=== PATIENT | male | born 1960 | race Caucasian/White ===

== ENCOUNTER 2017-02-21 13:40 | Inpatient (IN) | payer BC, OTHER ==
[~2017-02-21] VITALS: Ht 182.9 cm; Wt 123.4 kg
[~2017-02-21 13:40] MED LIST: ADVIN25/60 INH; ALBUAER2 INH; AMIL5TAB15 PO; ASPI81TA28 PO; ATOR-26 PO; CARV12.52 PO; CHOL100010 PO; HYDR-5688 PO; IPRA1AER2 INH; LISI-461 PO; NIFE1TAB55 PO; NTRGSL/4 UT; PREG200C PO; ROPI0.5T15 PO; ROPI1TAB PO; SERT-234 PO; TIOTCAP INH
--- NOTE | 2017-02-21 13:52 | EMERGENCY ROOM VISIT NOTE ---
History Report prepared by Jose Luis: Ezekiel Trujillo Under the Supervision of: Dr. Josefa August M.D. First contact with patient: 13:42 Stated Complaint: STROKE SYMPTOMS History of Present Illness The patient is a 56 year old male who presents to the Emergency Room with complaints of acute altered mental status that started at approximately 1230. EMS notes that the patient is displaying stroke-like symptoms. The patient was at work when the symptoms started. He denies nausea or vomiting. EMS gave the patient 1 inch of nitroglycerin en route to the ED. The patient has had multiple TIAs in the past. A complete history is limited secondary to altered mental status. Source of History: patient, EMS History Limited By: AMS Onset: 1230 Position: other (psyche) Quality: other (altered mental status) Timing: other (acute) Associated Symptoms: No nausea, No vomiting Review of Systems ROS is limited secondary to altered mental status. Past Medical & Surgical Medical Problems: (1) History of TIA (transient ischemic attack) (2) Left corneal abrasion Family History Patient reports no known family medical history. Social History Smoking Status: Former Smoker Current/Historical Medications Scheduled Amiloride Hcl (Amiloride Hcl), 1 TAB PO DAILY Aspirin (Aspirin Ec), 81 MG PO DAILY Atorvastatin (Lipitor), 1 TAB PO DAILY Carvedilol (Carvedilol), 1 TAB PO DAILY Clopidogrel Bisulfate (Clopidogrel), 1 TAB PO DAILY Fluticasone Prop/Salmeterol (Advair Diskus 250/50 60 Dose), 1 PUFFS INH BID Lisinopril (Lisinopril), 1 TAB PO DAILY Nifedipine (Nifedipine Er), 90 MG PO DAILY Nitroglycerin (Nitrostat), 0.4 MG UT PRN Pregabalin (Lyrica), 200 MG PO BID Ropinirole (Requip), 0.5 MG PO BID Ropinirole (Requip), 1 MG PO HS WITH 0.5MG TABLET Sertraline (Zoloft), 100 MG PO DAILY Scheduled PRN Ipratropium-Albuterol (Combivent Respimat), 1 PUFFS INH QID PRN for Shortness of Breath Allergies Coded Allergies: Armodafinil (Unverified Allergy, Unknown, DELIRIUM, 01/07/16) Baclofen (Unverified Allergy, Unknown, DELIRIUM, 01/07/16) Physical Exam Vital Signs Date Time Temp Pulse Resp B/P Pulse Ox O2 Delivery O2 Flow Rate FiO2 02/21/17 15:10 63 165/89 98 Room Air 02/21/17 14:45 65 187/95 96 Room Air 02/21/17 14:37 64 17 192/101 98 Room Air 02/21/17 14:12 62 12 163/95 98 Room Air 02/21/17 14:03 94 Room Air 02/21/17 13:52 37.1 60 16 199/100 96 Room Air Physical Exam Vital signs reviewed. General: Well-appearing male, in no significant distress. HEENT: No scleral icterus, PERRLA, neck supple. Atraumatic. Cardiovascular: Regular rate and rhythm, no extra sounds. Pulmonary: Clear to auscultation bilaterally, normal work of breathing. Abdomen: Soft, nontender, nondistended, positive bowel sounds. Musculoskeletal: Atraumatic, no peripheral edema. Neurologic: Slow to respond but answers are accurate. Some appreciable weakness in the left upper extremity, leasing machine tender strength is equal Cranial nerves 2 through 12 grossly intact. Cerebellar exam is intact. Skin: Warm, dry, no rash Medical Decision & Procedures ER Provider Diagnostic Interpretation: Radiology results as stated below per my review and radiologist interpretation: CHEST ONE VIEW PORTABLE CLINICAL HISTORY: Stroke COMPARISON STUDY: 02/21/2017 FINDINGS: The heart is at the upper limits of normal in size. There is no overt failure. There is no focal pulmonary consolidation. There are no pleural effusions. There is a left subclavian dual-chamber central venous pacemaker present. There are minimal left basilar atelectatic changes.[ IMPRESSION: No active disease in the chest. Electronically signed by: Saw Turner M.D. 02/21/2017 2:18 PM Dictated Date/Time: 02/21/2017 2:[address] HEAD WITHOUT CONTRAST (CT) CLINICAL HISTORY: Stroke COMPARISON STUDY: No previous studies for comparison. TECHNIQUE: Axial CT of the brain is performed from the vertex to the skull base. IV contrast was not administered for this examination. CT DOSE: 712.55 mGy.cm FINDINGS: No intra or extra-axial mass lesions are visualized. There is no CT evidence of acute cortical infarction. There is no evidence of midline shift. There is no acute hemorrhage. No calvarial fractures are visualized. There are minimal white matter hypodensities likely on a small vessel basis. There is no evidence of pathologic ventricular dilatation. There is a minimal left mastoid effusion. IMPRESSION: No acute intracranial findings Electronically signed by: Saw Turner M.D. 02/21/2017 2:34 PM Dictated Date/Time: 02/21/2017 2:33 PM Laboratory Results 02/21/17 13:55 Red Blood Count 4.87, Mean Corpuscular Volume 84.4, Mean Corpuscular Hemoglobin 28.3, Mean Corpuscular Hemoglobin Concent 33.6, Mean Platelet Volume 9.2, Neutrophils (%) (Auto) 68.5, Lymphocytes (%) (Auto) 21.3, Monocytes (%) (Auto) 8.3, Eosinophils (%) (Auto) 1.7, Basophils (%) (Auto) 0.2, Neutrophils # (Auto) 4.40, Lymphocytes # (Auto) 1.37, Monocytes # (Auto) 0.53, Eosinophils # (Auto) 0.11, Basophils # (Auto) 0.01 02/21/17 13:55 Test 02/21/17 13:55 02/21/17 14:52 White Blood Count 6.42 K/uL (4.8-10.8) Red Blood Count 4.87 M/uL (4.7-6.1) Hemoglobin 13.8 g/dL (14.0-18.0) Hematocrit 41.1 % (42-52) Mean Corpuscular Volume 84.4 fL (80-100) Mean Corpuscular Hemoglobin 28.3 pg (25-34) Mean Corpuscular Hemoglobin Concent 33.6 g/dl (32-36) Platelet Count 179 K/uL (130-400) Mean Platelet Volume 9.2 fL (7.4-10.4) Neutrophils (%) (Auto) 68.5 % Lymphocytes (%) (Auto) 21.3 % Monocytes (%) (Auto) 8.3 % Eosinophils (%) (Auto) 1.7 % Basophils (%) (Auto) 0.2 % Neutrophils # (Auto) 4.40 K/uL (1.4-6.5) Lymphocytes # (Auto) 1.37 K/uL (1.2-3.4) Monocytes # (Auto) 0.53 K/uL (0.11-0.59) Eosinophils # (Auto) 0.11 K/uL (0-0.5) Basophils # (Auto) 0.01 K/uL (0-0.2) RDW Standard Deviation 42.1 fL (36.4-46.3) RDW Coefficient of Variation 13.7 % (11.5-14.5) Immature Granulocyte % (Auto) 0.0 % Immature Granulocyte # (Auto) 0.00 K/uL (0.00-0.02) Prothrombin Time 10.0 SECONDS (9.0-12.0) Prothromb Time International Ratio 0.9 (0.9-1.1) Activated Partial Thromboplast Time 29.4 SECONDS (21.0-31.0) Partial Thromboplastin Ratio 1.1 Anion Gap 9.0 mmol/L (3-11) Est Creatinine Clear Calc Drug Dose 129.2 ml/min Estimated GFR () 111.0 Estimated GFR (Non- 95.8 BUN/Creatinine Ratio 16.1 (10-20) Calcium Level 7.9 mg/dl (8.5-10.1) Total Creatine Kinase 78 U/L (39-308) Creatine Kinase MB 1.1 ng/ml (0.5-3.6) Creatine Kinase MB Ratio 1.4 (0-3.0) Troponin I < 0.015 ng/ml (0-0.045) Bedside Glucose 95 mg/dl (70-99) Laboratory results per my review. Medications Administered Medications (Trade) Dose Ordered Sig/René Route Start Time Stop Time Status Last Admin Dose Admin Sodium Chloride (Nss 1000ml) 1,000 ml @ 100 mls/hr Q10H IV 02/21/17 13:57 03/23/17 13:56 02/21/17 13:57 100 MLS/HR Hydralazine HCl (HydrALAZINE INJ) 10 mg NOW STAT IV. 02/21/17 13:57 02/21/17 14:00 DC 02/21/17 14:39 10 MG ECG Indication: altered mental status Rate (beats per minute): 61 Rhythm: other (atrial paced) Findings: no acute ischemic change, other (QTC 442) ED Course 1343: Past medical records reviewed. The patient was evaluated in room C3. A complete history and physical examination was performed. 1357: Hydralazine 10 mg IV, NSS 1000 ml @ 100 mls/hr. 1440: Updated the patient and his family. 1458: Discussed the case with Javi Brown. The patient will be evaluated. Medical Decision Differential diagnosis: Etiologies such as metabolic, infection, hypo/hyperglycemia, electrolyte abnormalities, cardiac sources, intracerebral event, toxicologic, neurologic, as well as others were entertained. This patient was evaluated and appeared to be in no significant distress. IV access was obtained and laboratory work was drawn. The patient was placed on the panel monitor and found to be in a normal sinus rhythm. He is noted to be markedly hypertensive. He received 1 inch of nitroglycerin paste to the anterior chest wall in route. Some improvement in his blood pressure however this was discontinued and the patient was given 10 mg of IV hydralazine. CT scan of the head was performed and reveals no evidence of acute intracranial abnormality. His physical exam is notable for a very subtle left upper extremity weakness however his cerebellar exam and cranial nerves are intact. He has equal strength the bilateral lower extremities. The patient is able to answer all questions appropriately, although he does take his time with answering. Laboratory work is unrevealing. The case was discussed with the hospitalist service will evaluate the patient for further management. Patient' s family are aware of the plan and agree. Consults Time Called: 1545 Consulting Physician: Jaiv Brown Returned Call: [phone]: D[facility] the case [facility] The patient will be evaluated. Impression Primary Impression: Hypertensive urgency Scribe Attestation The scribe's documentation has been prepared under my direction and personally reviewed by me in its entirety. I confirm that the note above accurately reflects all work, treatment, procedures, and medical decision making performed by me. Departure Information Dispostion Being Evaluated By Hospitalist Referrals Olivia Flores PA-C (PCP)
[2017-02-21] MEDS ORDERED: SODIUM CHLORIDE 0.9% 1000ML 1,000 ML IV SCH (13:57)
[2017-02-21 14:07] LABS: BASO % 0.2 %; BASO ABS # 0.01 K/uL (0-0.2); COMPLETE YES; EOS % 1.7 %; HEMATOCRIT 41.1 % (42-52); LYMPH % 21.3 %; LYMPH ABS # 1.37 K/uL (1.2-3.4); MEAN CELL VOLUME 84.4 fL (80-100); MEAN CORPUSCULAR HEMOGLOBIN 28.3 pg (25-34); MEAN CORPUSCULAR HGB CONC 33.6 g/dl (32-36); MEAN PLATELET VOLUME 9.2 fL (7.4-10.4); MONO % 8.3 %; NEUT % 68.5 %; PLATELET COUNT 179 K/uL (130-400); RED BLOOD COUNT 4.87 M/uL (4.7-6.1); WHITE BLOOD COUNT 6.42 K/uL (4.8-10.8)
[2017-02-21] MEDS: HydrALAZINE HCL 20 MG/ML VIAL IV. STA ×2 (14:12→14:39)
[2017-02-21] MEDS ORDERED: CRG25 PO (14:14)
[2017-02-21] MEDS ORDERED: PLV75 PO (14:14)
[2017-02-21] MEDS ORDERED: LSN40 PO (14:14)
--- NOTE | 2017-02-21 14:19 | DIAGNOSTIC IMAGING REPORT ---
CHEST ONE VIEW PORTABLE CLINICAL HISTORY: Stroke COMPARISON STUDY: 02/21/2017 FINDINGS: The heart is at the upper limits of normal in size. There is no overt failure. There is no focal pulmonary consolidation. There are no pleural effusions. There is a left subclavian dual-chamber central venous pacemaker present. There are minimal left basilar atelectatic changes.[ IMPRESSION: No active disease in the chest. Electronically signed by: Saw Turner M.D. 02/21/2017 2:18 PM Dictated Date/Time: 02/21/2017 2:17 PM
[2017-02-21 14:21] LABS: INR 0.9 (0.9-1.1); PARTIAL THROMBOPLASTIN RATIO 1.1
[2017-02-21 14:22] LABS: BLOOD UREA NITROGEN 14 mg/dl (7-18); BUN/CREATININE RATIO 16.1 (10-20); CALCIUM 7.9 mg/dl (8.5-10.1); CARBON DIOXIDE 26 mmol/L (21-32); CHLORIDE 110 mmol/L (98-107); CREATININE 0.87 mg/dl (0.60-1.40); GLUCOSE 101 mg/dl (70-99); POTASSIUM 3.9 mmol/L (3.5-5.1); SODIUM 145 mmol/L (136-145)
[2017-02-21 14:27] LABS: CKMB/CK RATIO 1.4 (0-3.0)
--- NOTE | 2017-02-21 14:35 | DIAGNOSTIC IMAGING REPORT ---
CT HEAD WITHOUT CONTRAST (CT) CLINICAL HISTORY: Stroke COMPARISON STUDY: No previous studies for comparison. TECHNIQUE: Axial CT of the brain is performed from the vertex to the skull base. IV contrast was not administered for this examination. CT DOSE: 712.55 mGy.cm FINDINGS: No intra or extra-axial mass lesions are visualized. There is no CT evidence of acute cortical infarction. There is no evidence of midline shift. There is no acute hemorrhage. No calvarial fractures are visualized. There are minimal white matter hypodensities likely on a small vessel basis. There is no evidence of pathologic ventricular dilatation. There is a minimal left mastoid effusion. IMPRESSION: No acute intracranial findings Electronically signed by: Saw Turner M.D. 02/21/2017 2:34 PM Dictated Date/Time: 02/21/2017 2:33 PM
[2017-02-21 15:25] VITALS: O2SAT 98; Ht 182.9 cm; Wt 123.4 kg
[2017-02-21] MEDS ORDERED: PHARMACIST DISCHARGE MED REC CONSULT PRN (16:15)
[2017-02-21] MEDS ORDERED: CLOPIDOGREL BISULFATE 75 MG TAB PO ONE (16:28)
[2017-02-21] MEDS ORDERED: ASPIRIN 81 MG ECTAB PO ONE (16:28)
[2017-02-21] MEDS ORDERED: CARVEDILOL 25 MG TAB PO ONE (16:28)
[2017-02-21] MEDS ORDERED: CLONIDINE HCL 0.1 MG TAB PO PRN (16:30)
[2017-02-21] MEDS ORDERED: ACETAMINOPHEN 325 MG TAB PO PRN (16:45)
[2017-02-21 16:50] VITALS: BP 186/97; PULSE 61; TEMP 36.6; O2SAT 97
[2017-02-21] MEDS ORDERED: ASPIRIN 325 MG ECTAB PO ONE (16:55)
--- NOTE | 2017-02-21 16:55 | History and Physical ---
History & Physical Date & Time of Service: Feb 21, 2017 at 16:41 Chief Complaint: Stroke-Like Symptoms Primary Care Physician: Olivia Flores PA-C History of Present Illness Source: patient, family, clinic records, hospital records 56 year old male with history of TIAs on Plavix and Aspirin, Non obstructive CAD , Sick Sinus Syndrome s/p Pacemaker placement, HTN, DM diet controlled, other problems noted below presenting with stroke like symptoms- episode of left arm weakness/numbness, aphasia this afternoon. Patient follows with Dr. Richmond for Primary Care, Dr. Spencer for Neuropathy. Patient was seen at the [facility] last 01/27/17 for neck pain and left arm numbness. CT angio head and neck was normal. This morning, patient admits to not being able to take his medications. 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 He managed to drive to the urgent care and was directed to the ER. At the ER, BP was systolic 199, CT head negative. He was given nitropaste which improved BP to 160s. On my exam, patient confirms that his symptoms have resolved except for left arm numbness. Family reports that he his back to his baseline mental status and speech. No other focal neuro deficits. Denies chest pain, dyspnea, has mild parietal headache. No nausea, vomiting, fever/chills. No other symptoms.; Past Medical/Surgical History Medical Problems: (1) History of TIA (transient ischemic attack) Status: Resolved (2) Left corneal abrasion Status: Resolved Family History Patient reports no known family medical history. Social History Smoking Status: Former Smoker Alcohol Use: none Drug Use: none Marital Status: Housing status: lives with family Occupational Status: employed Immunizations History of Influenza Vaccine: Yes Influenza Vaccine Date: Jul 23, 2009 History of Tetanus Vaccine?: Yes Tetanus Immunization Date: March 22, 2009 History of Pneumococcal: Yes Pneumococcal Date: Jan 20, 2009 History of Hepatitis B Vaccine: No Allergies Coded Allergies: Armodafinil (Unverified Allergy, Unknown, DELIRIUM, 01/07/16) Baclofen (Unverified Allergy, Unknown, DELIRIUM, 01/07/16) Home Medications Scheduled Amiloride Hcl (Amiloride Hcl), 1 TAB PO DAILY Aspirin (Aspirin Ec), 81 MG PO DAILY Atorvastatin (Lipitor), 1 TAB PO DAILY Carvedilol (Carvedilol), 1 TAB PO DAILY Clopidogrel Bisulfate (Clopidogrel), 1 TAB PO DAILY Fluticasone Prop/Salmeterol (Advair Diskus 250/50 60 Dose), 1 PUFFS INH BID Lisinopril (Lisinopril), 1 TAB PO DAILY Nifedipine (Nifedipine Er), 90 MG PO DAILY Nitroglycerin (Nitrostat), 0.4 MG UT PRN Pregabalin (Lyrica), 200 MG PO BID Ropinirole (Requip), 0.5 MG PO BID Ropinirole (Requip), 1 MG PO HS WITH 0.5MG TABLET Sertraline (Zoloft), 100 MG PO DAILY Scheduled PRN Ipratropium-Albuterol (Combivent Respimat), 1 PUFFS INH QID PRN for Shortness of Breath Review of Systems Constitutional- no fever; no weight loss Eyes- no acute visual changes ENT- no sinus drainage; no pharyngitis Pulmonary- no cough, no wheezing, no shortness of breath Cardiac- no chest pain, no palpitations, no orthopnea, no dependent edema GI- no nausea, no vomiting, no diarrhea, no melena, no hematochezia - no dysuria, no hematuria Musculoskeletal- no arthralgias, no myalgias Derm- no rashes, no new skin lesions, no changing skin lesions Hematologic- no unusual bruising, no unusual bleeding Lymphatics- no adenopathy Endocrine- no polyuria or polydipsia; no heat or cold intolerance Neuro- (+) as noted above Psych- no anxiety, no depression Physical Exam Vital Signs Date Time Temp Pulse Resp B/P Pulse Ox O2 Delivery O2 Flow Rate FiO2 02/21/17 16:02 87 20 175/108 97 Room Air 02/21/17 15:25 98 Room Air 02/21/17 15:10 63 165/89 98 Room Air 02/21/17 14:45 65 187/95 96 Room Air 02/21/17 14:37 64 17 192/101 98 Room Air 02/21/17 14:12 62 12 163/95 98 Room Air 02/21/17 14:03 94 Room Air 02/21/17 13:52 37.1 60 16 199/100 96 Room Air General Appearance: WD/WN, no apparent distress Head: normocephalic, atraumatic Eyes: normal inspection, PERRL, EOMI, sclerae normal ENT: normal ENT inspection, hearing grossly normal, pharynx normal Neck: supple, no adenopathy, thyroid normal, no JVD, trachea midline Respiratory/Chest: chest non-tender, lungs clear, normal breath sounds, no respiratory distress, no accessory muscle use Cardiovascular: regular rate, rhythm, no edema, no JVD, no murmur Abdomen/GI: normal bowel sounds, non tender, soft, no organomegaly Back: normal inspection, no CVA tenderness Extremities/Musculoskelatal: normal inspection, no calf tenderness, normal capillary refill, no pedal edema, normal range of motion Neurologic/Psych: public policy manager II-XII nml as tested, alert, normal mood/affect, normal reflexes, oriented x 3, + pertinent finding (motor 5/5 on all extremities, sensation 100% on all extremities, except left arm/hand ~50%) Skin: normal color, warm/dry, no rash Lymphatic: no adenopathy Diagnostics Laboratory Results Results Past 24 Hours Test 02/21/17 13:55 02/21/17 14:52 02/21/17 16:38 Range/Units White Blood Count 6.42 4.8-10.8 K/uL Red Blood Count 4.87 4.7-6.1 M/uL Hemoglobin 13.8 14.0-18.0 g/dL Hematocrit 41.1 42-52 % Mean Corpuscular Volume 84.4 80-100 fL Mean Corpuscular Hemoglobin 28.3 25-34 pg Mean Corpuscular Hemoglobin Concent 33.6 32-36 g/dl Platelet Count 179 130-400 K/uL Mean Platelet Volume 9.2 7.4-10.4 fL Neutrophils (%) (Auto) 68.5 % Lymphocytes (%) (Auto) 21.3 % Monocytes (%) (Auto) 8.3 % Eosinophils (%) (Auto) 1.7 % Basophils (%) (Auto) 0.2 % Neutrophils # (Auto) 4.40 1.4-6.5 K/uL Lymphocytes # (Auto) 1.37 1.2-3.4 K/uL Monocytes # (Auto) 0.53 0.11-0.59 K/uL Eosinophils # (Auto) 0.11 0-0.5 K/uL Basophils # (Auto) 0.01 0-0.2 K/uL RDW Standard Deviation 42.1 36.4-46.3 fL RDW Coefficient of Variation 13.7 11.5-14.5 % Immature Granulocyte % (Auto) 0.0 % Immature Granulocyte # (Auto) 0.00 0.00-0.02 K/uL Prothrombin Time 10.0 9.0-12.0 SECONDS Prothromb Time International Ratio 0.9 0.9-1.1 Activated Partial Thromboplast Time 29.4 21.0-31.0 SECONDS Partial Thromboplastin Ratio 1.1 Sodium Level 145 136-145 mmol/L Potassium Level 3.9 3.5-5.1 mmol/L Chloride Level 110 98-107 mmol/L Carbon Dioxide Level 26 21-32 mmol/L Anion Gap 9.0 3-11 mmol/L Blood Urea Nitrogen 14 7-18 mg/dl Creatinine 0.87 0.60-1.40 mg/dl Est Creatinine Clear Calc Drug Dose 129.2 ml/min Estimated GFR () 111.0 Estimated GFR (Non- 95.8 BUN/Creatinine Ratio 16.1 10-20 Random Glucose 101 70-99 mg/dl Calcium Level 7.9 8.5-10.1 mg/dl Total Creatine Kinase 78 39-308 U/L Creatine Kinase MB 1.1 0.5-3.6 ng/ml Creatine Kinase MB Ratio 1.4 0-3.0 Troponin I < 0.015 0-0.045 ng/ml Bedside Glucose 95 70-99 mg/dl Diagnostic Radiology CT head: no acute process EKG paced rhythm Impression Assessment and Plan 56 year old male with history of TIAs on Plavix and Aspirin, Non obstructive CAD , Sick Sinus Syndrome s/p Pacemaker placement, HTN, DM diet controlled, other problems noted below presenting with stroke like symptoms- episode of left arm weakness/numbness, aphasia this afternoon. EPISODE OF APHASIA, LEFT ARM WEAKNESS AND NUMBNESS HISTORY OF TIAs - on exam, symptoms have resolved except for left arm numbness - already on Aspirin 243mg daily and Plavix 75mg daily, and Lipitor 80mg daily - CT head: negative CT angio head and neck done 01/27/17: normal - CT head in AM echo increase aspirin to 325mg daily - Dr. Sorenson consulted - may be related to Hypertensive Urgency management noted below HYPERTENSIVE URGENCY - patient admits not being able to take medications this AM also reports BP has not been well controlled lately - maintain BP on the higher side for now due to possible TIA/CVA HOLD Lisinopril, Nifedipine, Amiloride continue Carvedilol PRN Clonidine added SICK SINUS SYNDROME S/P PACEMAKER - PM interrogation CAD check cardiac markers, Echo continue Aspirin, Plavix, Statin, Carvedilol ASTHMA not in exacerbation on Advair OBSTRUCTIVE SLEEP APNEA CPAP NEUROPATHY RESTLESS LEGS SYNDROME continue Lyrica, Ropinirole ff up with Neurologist Dr. Spencer DVT PROPHYLAXIS SCDs CT head in AM, if extensive CVA ruled out, Heparin/Lovenox FULL CODE PER PATIENT DISPOSITION lives with family PT /OT eval Advanced Directives Existing Living Will: Yes Existing Power of Deputy Sheriff: No VTE Prophylaxis VTE Risk Assessment Done? Y/N: Yes Risk Level: Moderate
[2017-02-21 17:13] LABS: BENZODIAZEPINE, URINE NEG (NEG); COCAINE,URINE NEG (NEG); PHENCYCLIDINE, URINE NEG (NEG)
[2017-02-21] MEDS ORDERED: GLUCOSE 10 TABS/TUBE PO PRN (17:45)
[2017-02-21] MEDS ORDERED: GLUCAGON FOR INJ 1 MG VIAL SQ PRN (17:45)
[2017-02-21] MEDS ORDERED: DEXTROSE 50% 50 ML SYR IV PRN (17:45)
[2017-02-21] MEDS ORDERED: GLUCOSE 40% GEL 15 GM TUBE PO PRN (17:45)
[2017-02-21] MEDS: FLUTICASONE/SALMETEROL 250/50 (ADVAIR) 14 PUFF/1 INHALER INH SCH (20:17)
[2017-02-21] MEDS: ROPINIROLE HCL 1 MG TAB PO SCH (20:18)
[2017-02-21] MEDS: ROPINIROLE HCL 0.25 MG TAB PO SCH (20:18)
[2017-02-21] MEDS: INSULIN ASPART 100 UNITS/ML 3 ML PEN SC SCH (20:20)
[2017-02-21] MEDS: PREGABALIN 100 MG CAP PO SCH (20:21)
[2017-02-21 20:28] VITALS: BP_SYST 128; BP_SYST 137; BP_SYST 139; BP_DIAS 71; BP_DIAS 78; PULSE 62; TEMP 36.7; O2SAT 98
[2017-02-21 22:14] VITALS: PULSE 62; O2SAT 97
[2017-02-21 23:03] LABS: CKMB/CK RATIO 1.1 (0-3.0)
[2017-02-21 23:59] VITALS: BP 118/74; PULSE 60; TEMP 36.5; O2SAT 96
[2017-02-22] VITALS (8 sets, daily range): BP systolic 150–164; BP diastolic 83–93; PULSE 61–70; TEMP 36.4–37.1; O2SAT 95–98
[2017-02-22 04:33] LABS: COMPLETE YES; EOS % 2.8 %; HEMATOCRIT 40.6 % (42-52); LYMPH % 25.7 %; LYMPH ABS # 1.28 K/uL (1.2-3.4); MEAN CELL VOLUME 87.7 fL (80-100); MEAN CORPUSCULAR HEMOGLOBIN 28.3 pg (25-34); MEAN CORPUSCULAR HGB CONC 32.3 g/dl (32-36); MEAN PLATELET VOLUME 9.6 fL (7.4-10.4); MONO % 11.8 %; NEUT % 59.7 %; PLATELET COUNT 167 K/uL (130-400); RED BLOOD COUNT 4.63 M/uL (4.7-6.1); WHITE BLOOD COUNT 4.99 K/uL (4.8-10.8)
[2017-02-22 04:53] LABS: BLOOD UREA NITROGEN 11 mg/dl (7-18); BUN/CREATININE RATIO 12.1 (10-20); CALCIUM 8.3 mg/dl (8.5-10.1); CARBON DIOXIDE 31 mmol/L (21-32); CHLORIDE 110 mmol/L (98-107); CREATININE 0.87 mg/dl (0.60-1.40); GLUCOSE 94 mg/dl (70-99); POTASSIUM 4.3 mmol/L (3.5-5.1); SODIUM 146 mmol/L (136-145)
[2017-02-22 05:10] LABS: CHOLESTEROL 186 mg/dl (0-200); CHOLESTEROL/HDL RATIO 4.5; CKMB/CK RATIO 1.1 (0-3.0); HDL CHOLESTEROL 41 mg/dl; LDL CHOLESTEROL CALCULATED 126 mg/dl; TRIGLYCERIDES 96 mg/dl (0-150); VERY LOW DENSITY LIPOPROT CALC 19 mg/dl
[2017-02-22] MEDS: INSULIN ASPART 100 UNITS/ML 3 ML PEN SC SCH ×5 (06:30→21:46)
[2017-02-22] MEDS ORDERED: PERFLUTREN LIPID MICROSPHERE (DEFINITY) IV ONE (07:07)
[2017-02-22] MEDS: FLUTICASONE/SALMETEROL 250/50 (ADVAIR) 14 PUFF/1 INHALER INH SCH ×2 (07:21→21:45)
[2017-02-22] MEDS: ASPIRIN 325 MG ECTAB PO SCH (07:21)
[2017-02-22] MEDS: CARVEDILOL 25 MG TAB PO SCH (07:22)
[2017-02-22] MEDS: ATORVASTATIN 40 MG TAB PO SCH (07:23)
[2017-02-22] MEDS: PREGABALIN 100 MG CAP PO SCH ×2 (07:26→21:50)
[2017-02-22] MEDS: ROPINIROLE HCL 0.25 MG TAB PO SCH ×2 (07:26→21:47)
[2017-02-22] MEDS: CLOPIDOGREL BISULFATE 75 MG TAB PO SCH (07:26)
[2017-02-22] MEDS: SERTRALINE HCL 100 MG TAB PO SCH (07:26)
[2017-02-22 07:43] LABS: ESTIMATED AVERAGE GLUCOSE 134 mg/dl; HA1C FLAG Normal (Normal)
[2017-02-22] MEDS ORDERED: ASPIRIN 81 MG ECTAB PO SCH (09:00)
--- NOTE | 2017-02-22 09:01 | ECHOCARDIOGRAM REPORT ---
*NOTICE TO RECEIVING [employer] This information is strictly Confidential and protected under [place] law. [place] law prohibits you from making any further disclosure of this information unless further disclosure is expressly permitted by the written consent of the person to whom it pertains or is authorized by law. A general authorization for the release of medical or other information is not sufficient for this purpose. Hospital accepts no responsibility if the information is made available to any other person, INCLUDING THE PATIENT. Interpretation Summary * Name: LING DUCKWORTH JR Study Date: 02/22/2017 06:41 AM BP: 158/90 mmHg * Patient Location: [facility]\S\N289\S\2 HR: 70 * : 1960 (M/d/yyyy) Gender: Male Height: 72 in * Age: 56 yrs Ethnicity: [place] Weight: 280 lb * Ordering Physician: Bang Skinner * Performed By: Cherri Agudelo * * Reason For Study: POSSIBLE TIA * BSA: 2.5 m2 * The study was technically adequate. * Compared to prior study, there is no significant change. * -- Conclusions -- * Left ventricular systolic function is normal. * Ejection Fraction = 55-60%. * There is moderate concentric left ventricular hypertrophy. * Grade I diastolic dysfunction, (abnormal relaxation pattern). * No significant valvular pathology. Procedure Details * A complete two-dimensional transthoracic echocardiogram was performed (2D, M-mode, Doppler and color flow Doppler). * There were technical limitations due to patient'sbody habitus * A contrast injection of Definity was performed to improve assessment of LV function. * Contrast was injected into an intravenous site in the left arm. * One vial of Definity ultrasound contrast was diluted in normal saline to a total volume of 10 ml. A total of '3' ml of solution was administered during imaging. * Lot # [id number] of Definity utilized for procedure. * Expiration date 03/09. * The attending nurse who injected the contrast agent was NOAH JOYNER RN. Left Ventricle * The left ventricle is normal in size. * There is no thrombus. * There is moderate concentric left ventricular hypertrophy. * There is normal left ventricular wall thickness. * Ejection Fraction = 55-60%. * Left ventricular systolic function is normal. * The left ventricular wall motion is normal. Right Ventricle * The right ventricle is normal size. * The right ventricular systolic function is normal as assessed by tricuspid annular plane systolic excursion (TAPSE) (normal >1.5 cm). Atria * The left atrium is mildly dilated. * Right atrial size is normal. * There is a catheter/pacemaker lead seen in the right atrium. * There is no evidence of atrial septal defect, but resolution does not allow assessment for a patent foramen ovale. Mitral Valve * The mitral valve is normal. * There is no mitral valve stenosis. * Significant mitral regurgitation is absent. Tricuspid Valve * The tricuspid valve is not well visualized. * There is no tricuspid stenosis. * Significant tricuspid regurgitation is absent. Aortic Valve * The aortic valve is trileaflet. * Aortic stenosis is absent. * There is no significant aortic regurgitation. Pulmonic Valve * The pulmonary valve is not well seen, but the Doppler examination is normal without significant regurgitation or stenosis. Great Vessels * The aortic root and proximal ascending aorta are normal sized. Pericardium/Pleural * There is no pericardial effusion. Great Vessels * Normal inferior vena cava diameter and respiratory variation suggests normal central venous pressure. Left Ventricular Diastolic Function * Grade I diastolic dysfunction, (abnormal relaxation pattern). MMode 2D Measurements and Calculations IVSd 1.6 cm IVSs 2.2 cm LVIDd 5.5 cm LVIDs 3.4 cm LVPWd 1.2 cm LVPWs 2.3 cm IVS/LVPW 1.3 FS 37.9 % EDV(Teich) 149.5 ml ESV(Teich) 48.8 ml EF(Teich) 67.4 % EDV(cubed) 169.5 ml ESV(cubed) 40.7 ml EF(cubed) 76.0 % % IVS thick 36.5 % % LVPW thick 91.8 % LV mass(C)d 338.0 grams LV mass(C)dI 137.5 grams/m\S\2 LV mass(C)s 376.7 grams LV mass(C)sI 153.3 grams/m\S\2 CO(Teich) 6.8 l/min CI(Teich) 2.7 l/min/m\S\2 SV(Teich) 100.8 ml SI(Teich) 41.0 ml/m\S\2 CO(cubed) 8.6 l/min CI(cubed) 3.5 l/min/m\S\2 SV(cubed) 128.8 ml SI(cubed) 52.4 ml/m\S\2 EPSS 1.0 cm ACS 1.0 cm asc Aorta Diam 3.8 cm LVOT diam 2.1 cm LVOT area 3.6 cm\S\2 LVAd ap4 40.1 cm\S\2 LVLd ap4 9.5 cm EDV(MOD-sp4) 139.0 ml LVAs ap4 19.1 cm\S\2 LVLs ap4 7.5 cm ESV(MOD-sp4) 42.1 ml EF(MOD-sp4) 69.7 % LVAd ap2 38.8 cm\S\2 LVLd ap2 8.1 cm EDV(MOD-sp2) 157.0 ml LVAs ap2 20.5 cm\S\2 LVLs ap2 7.2 cm ESV(MOD-sp2) 48.8 ml EF(MOD-sp2) 68.9 % CO(MOD-sp4) 6.5 l/min CI(MOD-sp4) 2.6 l/min/m\S\2 SV(MOD-sp4) 96.9 ml SI(MOD-sp4) 39.4 ml/m\S\2 CO(MOD-sp2) 7.2 l/min CI(MOD-sp2) 2.9 l/min/m\S\2 SV(MOD-sp2) 108.2 ml SI(MOD-sp2) 44.0 ml/m\S\2 Doppler Measurements and Calculations MV E max gloria 82.5 cm/sec MV A max gloria 98.5 cm/sec MV E/A 0.84 MV V2 max 104.7 cm/sec MV max PG 4.4 mmHg MV V2 mean 57.4 cm/sec MV mean PG 1.5 mmHg MV V2 VTI 44.1 cm MV dec time 0.31 sec Ao V2 max 130.9 cm/sec Ao max PG 6.9 mmHg Ao max PG (full) 5.3 mmHg JUAN(V,A) 1.7 cm\S\2 JUAN(V,D) 1.7 cm\S\2 LV V1 max PG 1.6 mmHg LV V1 max 62.4 cm/sec PA V2 max 60.6 cm/sec PA max PG 1.5 mmHg
--- NOTE | 2017-02-22 12:12 | Progress Note ---
Internal Med Progress Note Date of Service: Feb 22, 2017. Provider Documentation: SUBJECTIVE: Seen and examined at bedside. States LUE weakness is intermittent and chronic. Currently denies any speech disturbance, weakness, headache. Admits to being non compliant with medications. Offers no other complaints. OBJECTIVE: Vital Signs-as noted below Physical Exam: Vitals signs as noted above General Appearance:Obese, no apparent distress Head: normocephalic, Atraumatic Eyes: normal inspection, EOMI, PERRLA Neck: supple, Trachea midline Respiratory/Chest: Normal breath sounds, CTA Cardiovascular: S1, S2, No murmur Abdomen/GI:Soft, Non tender, Bowel sounds present Extremities/Musculoskelatal:normal inspection, no edema Neurologic/Psych:AAOX3, grossly no focal neurological deficits Skin: normal color, warm Lab data as noted below. ASSESSMENT & PLAN: Patient is a 56 yr old male with history of TIAs, Non obstructive CAD, Sick Sinus Syndrome s/p Pacemaker placement, HTN, DM diet controlled presented with stroke like symptoms: An episode of LUE weakness/numbness, aphasia. STROKE LIKE SYMPTOMS H/O TIAs DD: secondary to hypertensive urgency, hypoglycemia, panic attack Continue ASA, plavix, Lipitor CT head: negative CT angio head and neck done 01/27/17: normal Repeat CT head: pending ECHO: as below Neurology consulted: await for input HYPERTENSIVE URGENCY Admits to being non compliant with medications BP better HTN meds on hold in setting of ruling out TIA/Stroke continue Carvedilol PRN Clonidine SICK SINUS SYNDROME S/P PACEMAKER PM interrogation CAD continue Aspirin, Plavix, Statin, Carvedilol Stable ASTHMA Stable Continue Advair OBSTRUCTIVE SLEEP APNEA CPAP NEUROPATHY RESTLESS LEGS SYNDROME continue Lyrica, Ropinirole Follow up with Neurologist Dr. Spencer Recently got EMG: results pending per patient DVT PX SCDs CODE STATUS: FULL CODE DISPOSITION Continue to monitor PROCEDURES: ECHO * Left ventricular systolic function is normal. * Ejection Fraction = 55-60%. * There is moderate concentric left ventricular hypertrophy. * Grade I diastolic dysfunction, (abnormal relaxation pattern). * No significant valvular pathology. Vital Signs: Date Time Temp Pulse Resp B/P Pulse Ox O2 Delivery O2 Flow Rate FiO2 02/22/17 11:49 37.1 62 16 150/83 96 Room Air 02/22/17 08:00 96 Room Air 02/22/17 07:46 36.5 61 18 153/93 96 Room Air 02/22/17 04:00 36.4 70 18 158/90 95 CPAP 02/22/17 04:00 CPAP 02/22/17 00:00 CPAP 02/21/17 23:59 36.5 60 20 118/74 96 CPAP 02/21/17 22:14 62 97 02/21/17 20:28 36.7 62 18 139/78 98 Room Air 137/78 128/71 02/21/17 20:00 Room Air 02/21/17 16:50 36.6 61 18 186/97 97 Room Air 02/21/17 16:15 37.1 87 20 175/108 97 02/21/17 16:02 87 20 175/108 97 Room Air 02/21/17 15:25 98 Room Air 02/21/17 15:10 63 165/89 98 Room Air 02/21/17 14:45 65 187/95 96 Room Air 02/21/17 14:37 64 17 192/101 98 Room Air 02/21/17 14:12 62 12 163/95 98 Room Air 02/21/17 14:03 94 Room Air 02/21/17 13:52 37.1 60 16 199/100 96 Room Air Lab Results: Results Past 24 Hours Test 02/21/17 13:55 02/21/17 14:52 02/21/17 16:40 02/21/17 16:45 Range/Units White Blood Count 6.42 4.8-10.8 K/uL Red Blood Count 4.87 4.7-6.1 M/uL Hemoglobin 13.8 14.0-18.0 g/dL Hematocrit 41.1 42-52 % Mean Corpuscular Volume 84.4 80-100 fL Mean Corpuscular Hemoglobin 28.3 25-34 pg Mean Corpuscular Hemoglobin Concent 33.6 32-36 g/dl Platelet Count 179 130-400 K/uL Mean Platelet Volume 9.2 7.4-10.4 fL Neutrophils (%) (Auto) 68.5 % Lymphocytes (%) (Auto) 21.3 % Monocytes (%) (Auto) 8.3 % Eosinophils (%) (Auto) 1.7 % Basophils (%) (Auto) 0.2 % Neutrophils # (Auto) 4.40 1.4-6.5 K/uL Lymphocytes # (Auto) 1.37 1.2-3.4 K/uL Monocytes # (Auto) 0.53 0.11-0.59 K/uL Eosinophils # (Auto) 0.11 0-0.5 K/uL Basophils # (Auto) 0.01 0-0.2 K/uL RDW Standard Deviation 42.1 36.4-46.3 fL RDW Coefficient of Variation 13.7 11.5-14.5 % Immature Granulocyte % (Auto) 0.0 % Immature Granulocyte # (Auto) 0.00 0.00-0.02 K/uL Prothrombin Time 10.0 9.0-12.0 SECONDS Prothromb Time International Ratio 0.9 0.9-1.1 Activated Partial Thromboplast Time 29.4 21.0-31.0 SECONDS Partial Thromboplastin Ratio 1.1 Sodium Level 145 136-145 mmol/L Potassium Level 3.9 3.5-5.1 mmol/L Chloride Level 110 98-107 mmol/L Carbon Dioxide Level 26 21-32 mmol/L Anion Gap 9.0 3-11 mmol/L Blood Urea Nitrogen 14 7-18 mg/dl Creatinine 0.87 0.60-1.40 mg/dl Est Creatinine Clear Calc Drug Dose 129.2 ml/min Estimated GFR () 111.0 Estimated GFR (Non- 95.8 BUN/Creatinine Ratio 16.1 10-20 Random Glucose 101 70-99 mg/dl Calcium Level 7.9 8.5-10.1 mg/dl Total Creatine Kinase 78 39-308 U/L Creatine Kinase MB 1.1 0.5-3.6 ng/ml Creatine Kinase MB Ratio 1.4 0-3.0 Troponin I < 0.015 0-0.045 ng/ml Hepatitis C Antibody Screen NEG NEG Bedside Glucose 95 86 70-99 mg/dl Urine Opiates Screen NEG NEG Urine Methadone, Qualitative NEG NEG Urine Barbiturates NEG NEG Urine Phencyclidine (PCP) Level NEG NEG Ur Amphetamine/Methamphetamine NEG NEG MDMA (Ecstasy) Screen NEG NEG Urine Benzodiazepines Screen NEG NEG Urine Cocaine Metabolite NEG NEG Urine Marijuana (THC) NEG NEG Test 02/21/17 20:07 02/21/17 22:25 02/22/17 04:25 02/22/17 07:22 Range/Units Bedside Glucose 187 90 70-99 mg/dl Total Creatine Kinase 61 55 39-308 U/L Creatine Kinase MB 0.7 0.6 0.5-3.6 ng/ml Creatine Kinase MB Ratio 1.1 1.1 0-3.0 Troponin I < 0.015 < 0.015 0-0.045 ng/ml White Blood Count 4.99 4.8-10.8 K/uL Red Blood Count 4.63 4.7-6.1 M/uL Hemoglobin 13.1 14.0-18.0 g/dL Hematocrit 40.6 42-52 % Mean Corpuscular Volume 87.7 80-100 fL Mean Corpuscular Hemoglobin 28.3 25-34 pg Mean Corpuscular Hemoglobin Concent 32.3 32-36 g/dl Platelet Count 167 130-400 K/uL Mean Platelet Volume 9.6 7.4-10.4 fL Neutrophils (%) (Auto) 59.7 % Lymphocytes (%) (Auto) 25.7 % Monocytes (%) (Auto) 11.8 % Eosinophils (%) (Auto) 2.8 % Basophils (%) (Auto) 0.0 % Neutrophils # (Auto) 2.98 1.4-6.5 K/uL Lymphocytes # (Auto) 1.28 1.2-3.4 K/uL Monocytes # (Auto) 0.59 0.11-0.59 K/uL Eosinophils # (Auto) 0.14 0-0.5 K/uL Basophils # (Auto) 0.00 0-0.2 K/uL RDW Standard Deviation 44.8 36.4-46.3 fL RDW Coefficient of Variation 13.9 11.5-14.5 % Immature Granulocyte % (Auto) 0.0 % Immature Granulocyte # (Auto) 0.00 0.00-0.02 K/uL Sodium Level 146 136-145 mmol/L Potassium Level 4.3 3.5-5.1 mmol/L Chloride Level 110 98-107 mmol/L Carbon Dioxide Level 31 21-32 mmol/L Anion Gap 5.0 3-11 mmol/L Blood Urea Nitrogen 11 7-18 mg/dl Creatinine 0.87 0.60-1.40 mg/dl Est Creatinine Clear Calc Drug Dose 129.2 ml/min Estimated GFR () 111.0 Estimated GFR (Non- 95.8 BUN/Creatinine Ratio 12.1 10-20 Random Glucose 94 70-99 mg/dl Estimated Average Glucose 134 mg/dl Hemoglobin A1c 6.3 4.5-5.6 % Calcium Level 8.3 8.5-10.1 mg/dl Triglycerides Level 96 0-150 mg/dl Cholesterol Level 186 0-200 mg/dl HDL Cholesterol 41 mg/dl LDL Cholesterol, Calculated 126 mg/dl VLDL Cholesterol, Calculated 19 mg/dl Cholesterol/HDL Ratio 4.5 Test 02/22/17 11:36 Range/Units Bedside Glucose 99 70-99 mg/dl
--- NOTE | 2017-02-22 13:01 | DIAGNOSTIC IMAGING REPORT ---
HEAD CT NONCONTRAST CT DOSE: 537.48 mGy.cm HISTORY: Left-sided weakness. Stroke symptoms. TECHNIQUE: Multiaxial CT images of the head were performed without the use of intravenous contrast. Automated exposure control was utilized for this study. Comparison: Head CT 02/21/2017. Findings: The paranasal sinuses and mastoid air cells are clear. The calvarium and skull base are intact. The ventricles and sulci are within normal limits. There is no mass, hematoma, midline shift, or acute infarct. Impression: No acute intracranial abnormality. Electronically signed by: Bay Cantu M.D. 02/22/2017 12:59 PM Dictated Date/Time: 02/22/2017 12:55 PM
--- NOTE | 2017-02-22 15:58 | Neurology Consultation ---
Neurology Consultation Date of Consultation: Feb 22, 2017. Attending Physician: Maurice Merino MD Primary Care Physician: Olivia Flores PA-C Reason for Consultation: possible TIA vs CVA History of Present Illness Source: patient, spouse 56 year old male with history of TIAs on Plavix and Aspirin, Non obstructive CAD , Sick Sinus Syndrome s/p Pacemaker placement, Олег is a 56 year old male who has a PMH HTN, DM, gastric bipass, previous TIA 's who was working at [employer] on Wednesday and started feeling off. he states he was having confusion and light headed and decided to check his blood sugar and blood pressure but the machines were low on batteries. He then went over to the urgent care and his blood pressure was 202/100 and his blood sugar was in the 80s which is low for him. He then started left arm weakness and numbness and aphasia. the urgent care then transported by EMS to the ED. His is in the room and states he has a pacemaker so he can't have an MRI. 2 CT head were done and both showed no evidence of ischemic event or hemorrhagic event. In September he had his last TIA and was placed on plavix and aspirin but he was not taking either one. he states he has not been taking any of his medications for about a month. denies Current CP, SOB, abdominal pain, weakness, numbness tingling, N, V, headache. Past Medical/Surgical History Medical Problems: (1) Hypertensive urgency Status: Acute Social History Smoking Status: Former smoker Alcohol Use: occasionally Drug Use: none Marital Status: Housing Status: lives with family Occupation Status: employed Allergies Coded Allergies: Armodafinil (Unverified Allergy, Unknown, DELIRIUM, 01/07/16) Baclofen (Unverified Allergy, Unknown, DELIRIUM, 01/07/16) Current Inpatient Medications Current Inpatient Medications Medications (Trade) Dose Ordered Sig/René Route Start Time Stop Time Status Last Admin Dose Admin Miscellaneous Information (Pharmacist Discharge Med Rec Consult) 1 ea UD PRN N/A 02/21/17 16:15 03/23/17 16:14 Clonidine HCl (Catapres Tab) 0.1 mg Q6H PRN PO 02/21/17 16:30 03/23/17 16:29 Atorvastatin Calcium (Lipitor Tab) 80 mg DAILY PO 02/22/17 09:00 5/3/17 08:59 02/22/17 07:23 80 MG Carvedilol (Coreg Tab) 25 mg DAILY PO 02/22/17 09:00 03/24/17 08:59 02/22/17 07:22 25 MG Clopidogrel Bisulfate (plAVix TAB) 75 mg DAILY PO 02/22/17 09:00 03/24/17 08:59 02/22/17 07:26 75 MG Salmeterol Xinafoate/ Fluticasone (Advair Diskus 250/50 Inh) 1 puff BID INH 02/21/17 21:00 03/23/17 20:59 02/22/17 07:21 1 PUFF Pregabalin (Lyrica Cap) 200 mg BID PO 02/21/17 21:00 03/23/17 20:59 02/22/17 07:26 200 MG Ropinirole HCl (Requip Tab) 0.5 mg BID PO 02/21/17 21:00 03/23/17 20:59 02/22/17 07:26 0.5 MG Ropinirole HCl (Requip Tab) 1 mg HS PO 02/21/17 21:00 03/23/17 20:59 02/21/17 20:18 1 MG Sertraline HCl (Zoloft Tab) 100 mg DAILY PO 02/22/17 09:00 03/24/17 08:59 02/22/17 07:26 100 MG Acetaminophen (Tylenol Tab) 650 mg Q4H PRN PO 02/21/17 16:45 03/23/17 16:44 Aspirin (Ecotrin Tab) 325 mg QAM PO 02/22/17 09:00 03/24/17 08:59 02/22/17 07:21 325 MG Insulin Aspart (novoLOG ASPART) SLIDING SCALE If C... ACHS SC 02/21/17 21:00 03/23/17 20:59 02/21/17 20:20 1 UNITS Glucose (Glucose 40% Gel) 15-30 GRAMS 15 GRAMS... UD PRN PO 02/21/17 17:45 03/23/17 17:44 Glucose (Glucose Chew Tab) 4-8 Tablets 4 Tabl... UD PRN PO 02/21/17 17:45 03/23/17 17:44 Dextrose (Dextrose 50% 50ML Syringe) 25-50ML OF 50% DW IV FOR... UD PRN IV 02/21/17 17:45 03/23/17 17:44 Glucagon (Glucagon Inj) 1 mg UD PRN SQ 02/21/17 17:45 03/23/17 17:44 Physical Exam Vital Signs (Past 24 Hrs): Date Time Temp Pulse Resp B/P Pulse Ox O2 Delivery O2 Flow Rate FiO2 02/22/17 12:00 96 Room Air 02/22/17 11:49 37.1 62 16 150/83 96 Room Air 02/22/17 08:00 96 Room Air 02/22/17 07:46 36.5 61 18 153/93 96 Room Air 02/22/17 04:00 36.4 70 18 158/90 95 CPAP 02/22/17 04:00 CPAP 02/22/17 00:00 CPAP 02/21/17 23:59 36.5 60 20 118/74 96 CPAP 02/21/17 22:14 62 97 02/21/17 20:28 36.7 62 18 139/78 98 Room Air 137/78 128/71 02/21/17 20:00 Room Air 02/21/17 16:50 36.6 61 18 186/97 97 Room Air 02/21/17 16:15 37.1 87 20 175/108 97 02/21/17 16:02 87 20 175/108 97 Room Air Physical Exam: Constitutional: appearance nourished, obese NAD Ears, Nose, Mouth and Throat: mucous membranes moist, no injection and skin normal, eyes normal Cardiovascular: normal S-1 and S-2 and regular rate and rhythm Respiratory: clear to auscultation (CTA) and no rales, rhonchi or wheeze Musculoskeletal: no peripheral edema and good distal pulses Skin: venous stasis bilaterally Eyes: extraocular muscles intact (EOMI) and pupils equal, round and reactive to light (PERRL) NEUROLOGIC EXAMINATION: Mental status: Alert and interactive Oriented to full date and location Oriented to person Speech fluent with no evidence of aphasia Cranial Nerves smile eye brow raise symmetric, tongue midline Reflexes: Deep tendon reflexes were symmetrical and graded 2/5. Plantar responses were flexor. Sensory: decreased sensation bilaterally LE vibration cool touch to mid ramos Coordination: Romberg positive with eyes close, finger to nose without bipass, no tremor Gait/Stance: Posture sitting in bedside chair stands with assistance of arms of chair Motor: Negative for pronator drift of out stretched arms with eyes closed. Strength: biceps triceps hand zoo caretaker intrinsics 5/5 bilaterally, hip flex plantar flex ext bilaterally, 5/5 Laboratory Results Past 24 Hours: 02/22/17 04:25 Red Blood Count 4.63, Mean Corpuscular Volume 87.7, Mean Corpuscular Hemoglobin 28.3, Mean Corpuscular Hemoglobin Concent 32.3, Mean Platelet Volume 9.6, Neutrophils (%) (Auto) 59.7, Lymphocytes (%) (Auto) 25.7, Monocytes (%) (Auto) 11.8, Eosinophils (%) (Auto) 2.8, Basophils (%) (Auto) 0.0, Neutrophils # (Auto ) 2.98, Lymphocytes # (Auto) 1.28, Monocytes # (Auto) 0.59, Eosinophils # (Auto ) 0.14, Basophils # (Auto) 0.00 02/22/17 04:25 Test 02/21/17 16:40 02/22/17 04:25 02/22/17 11:36 Urine Opiates Screen NEG (NEG) Urine Methadone, Qualitative NEG (NEG) Urine Barbiturates NEG (NEG) Urine Phencyclidine (PCP) Level NEG (NEG) Ur Amphetamine/Methamphetamine NEG (NEG) MDMA (Ecstasy) Screen NEG (NEG) Urine Benzodiazepines Screen NEG (NEG) Urine Cocaine Metabolite NEG (NEG) Urine Marijuana (THC) NEG (NEG) White Blood Count 4.99 K/uL (4.8-10.8) Red Blood Count 4.63 M/uL (4.7-6.1) Hemoglobin 13.1 g/dL (14.0-18.0) Hematocrit 40.6 % (42-52) Mean Corpuscular Volume 87.7 fL (80-100) Mean Corpuscular Hemoglobin 28.3 pg (25-34) Mean Corpuscular Hemoglobin Concent 32.3 g/dl (32-36) Platelet Count 167 K/uL (130-400) Mean Platelet Volume 9.6 fL (7.4-10.4) Neutrophils (%) (Auto) 59.7 % Lymphocytes (%) (Auto) 25.7 % Monocytes (%) (Auto) 11.8 % Eosinophils (%) (Auto) 2.8 % Basophils (%) (Auto) 0.0 % Neutrophils # (Auto) 2.98 K/uL (1.4-6.5) Lymphocytes # (Auto) 1.28 K/uL (1.2-3.4) Monocytes # (Auto) 0.59 K/uL (0.11-0.59) Eosinophils # (Auto) 0.14 K/uL (0-0.5) Basophils # (Auto) 0.00 K/uL (0-0.2) RDW Standard Deviation 44.8 fL (36.4-46.3) RDW Coefficient of Variation 13.9 % (11.5-14.5) Immature Granulocyte % (Auto) 0.0 % Immature Granulocyte # (Auto) 0.00 K/uL (0.00-0.02) Anion Gap 5.0 mmol/L (3-11) Est Creatinine Clear Calc Drug Dose 129.2 ml/min Estimated GFR () 111.0 Estimated GFR (Non- 95.8 BUN/Creatinine Ratio 12.1 (10-20) Estimated Average Glucose 134 mg/dl Hemoglobin A1c 6.3 % (4.5-5.6) Calcium Level 8.3 mg/dl (8.5-10.1) Total Creatine Kinase 55 U/L (39-308) Creatine Kinase MB 0.6 ng/ml (0.5-3.6) Creatine Kinase MB Ratio 1.1 (0-3.0) Troponin I < 0.015 ng/ml (0-0.045) Triglycerides Level 96 mg/dl (0-150) Cholesterol Level 186 mg/dl (0-200) HDL Cholesterol 41 mg/dl LDL Cholesterol, Calculated 126 mg/dl VLDL Cholesterol, Calculated 19 mg/dl Cholesterol/HDL Ratio 4.5 Bedside Glucose 99 mg/dl (70-99) Imaging CT head no acute abnormalities TTE- Left ventricular systolic function is normal. * Ejection Fraction = 55-60%. * There is moderate concentric left ventricular hypertrophy. * Grade I diastolic dysfunction, (abnormal relaxation pattern). * No significant valvular pathology. Impression 56 year old male with history of TIAs on Plavix and Aspirin was not taking for over a month- Non obstructive CAD, Sick Sinus Syndrome s/p Pacemaker placement, Plan 1. patient has not been taking his medications for over a month 2. CT head without contrast no abnormalities -can not have MRI due to pacemaker- CT head with and without contrast may be helpful 3. plavix 75 mg and aspirin 325 mg restarted 4. HTN, cholestrol LDL <70 and DM control -optimize 5. past smoker and vascular risk factors discussed with patient need to be compliant with medications 6. carotid doppler ordered 7. peripheral neuropathy and chronic vascular changes is being follow by Dr Toledo in [place] 8. further recommendations to follow I have seen and discussed above patient with Dr Scott Sorenson, neurology REviewed and patient examined situation reviewed with Lali Swanson history now indicates that the patient stopped most meds including plavix and asa for several weeks and the current event likely is thus another tia related to lack of antiplatelet meds doubt cva but will recheck a noher ct with contrast and if stable he likely could be sent home with follow up per pcp, cardilolgy and Dr Toledo for his neuropathy kwan follow up tomorrow Scott Sorenson MD
[2017-02-22] MEDS ORDERED: OPTIRAY 320 IV PRN (17:30)
--- NOTE | 2017-02-22 17:36 | DIAGNOSTIC IMAGING REPORT ---
CT OF THE HEAD WITH CONTRAST CT DOSE: 537.48 mGy.cm CLINICAL HISTORY: Stroke-like symptoms. Transient ischemic attack versus cerebrovascular accident. Left-sided weakness. TECHNIQUE: Axial images of the head were obtained following intravenous ministration of 120 cc of Optiray 320 IV. COMPARISON STUDY: Head CT February 21, 2017 and February 22, 2017. FINDINGS: No acute intracranial hemorrhage, midline shift or mass effect is present. Sensitivity for detection of intracranial hemorrhage is diminished on this contrast enhanced exam but none is identified. Ventricular system is normal. The basilar cisterns are patent. There are no extra-axial collections. There are no CT findings to suggest acute dural sinus thrombosis or acute territorial infarct. No calvarial abnormalities present. IMPRESSION: 1. No acute intracranial findings. Sensitivity for detection of intracranial hemorrhage is diminished on this unenhanced exam but none is identified. 2. No intracranial masses or pathologic enhancement. Electronically signed by: Jose Oscar M.D. 02/22/2017 5:35 PM Dictated Date/Time: 02/22/2017 5:32 PM
[2017-02-22] MEDS: ROPINIROLE HCL 1 MG TAB PO SCH (21:46)
[2017-02-23] VITALS: BP 153/80; PULSE 67; TEMP 36.6; O2SAT 95
[2017-02-23 04:00] VITALS: BP 148/79; PULSE 76; TEMP 36.9; O2SAT 95
[2017-02-23 05:45] LABS: BASO % 0.2 %; BASO ABS # 0.01 K/uL (0-0.2); COMPLETE YES; EOS % 2.6 %; HEMATOCRIT 39.7 % (42-52); IG% 0.2 %; LYMPH % 22.2 %; LYMPH ABS # 1.37 K/uL (1.2-3.4); MEAN CELL VOLUME 85.4 fL (80-100); MEAN CORPUSCULAR HEMOGLOBIN 28.4 pg (25-34); MEAN CORPUSCULAR HGB CONC 33.2 g/dl (32-36); MEAN PLATELET VOLUME 9.4 fL (7.4-10.4); MONO % 12.3 %; NEUT % 62.5 %; PLATELET COUNT 165 K/uL (130-400); RED BLOOD COUNT 4.65 M/uL (4.7-6.1); WHITE BLOOD COUNT 6.18 K/uL (4.8-10.8)
[2017-02-23 06:31] LABS: BUN/CREATININE RATIO 12.7 (10-20); CALCIUM 8.3 mg/dl (8.5-10.1); CREATININE 0.85 mg/dl (0.60-1.40); POTASSIUM 3.7 mmol/L (3.5-5.1)
--- NOTE | 2017-02-23 07:09 | DIAGNOSTIC IMAGING REPORT ---
BILATERAL CAROTID DOPPLER STUDY HISTORY: Stroke like symptoms. COMPARISON: None. TECHNIQUE: Real-time, grayscale, and color Doppler sonography of the carotid arteries was performed. Imaging reviewed in the transverse and longitudinal planes. All measurements were calculated based on NASCET criteria. FINDINGS: Antegrade flow is seen in the bilateral vertebral arteries. The peak systolic velocity within the right ICA is 83 cm/s. The right systolic ratio is 0.7. The peak systolic velocity within the left ICA is 92 cm/s. The left systolic ratio is 0.9. IMPRESSION: No hemodynamically significant stenosis seen within the carotid arteries. Electronically signed by: Bay Cantu M.D. 02/23/2017 7:08 AM Dictated Date/Time: 02/23/2017 7:07 AM
[2017-02-23 07:36] VITALS: BP 163/81; PULSE 61; TEMP 36.3; O2SAT 91
[2017-02-23 08:00] VITALS: O2SAT 91
[2017-02-23] MEDS: FLUTICASONE/SALMETEROL 250/50 (ADVAIR) 14 PUFF/1 INHALER INH SCH (08:56)
[2017-02-23] MEDS: ASPIRIN 325 MG ECTAB PO SCH (08:56)
[2017-02-23] MEDS: CLOPIDOGREL BISULFATE 75 MG TAB PO SCH (08:57)
[2017-02-23] MEDS: ATORVASTATIN 40 MG TAB PO SCH (08:57)
[2017-02-23] MEDS: SERTRALINE HCL 100 MG TAB PO SCH (08:58)
[2017-02-23] MEDS: ROPINIROLE HCL 0.25 MG TAB PO SCH (08:58)
[2017-02-23] MEDS: CARVEDILOL 25 MG TAB PO SCH (08:58)
[2017-02-23] MEDS: PREGABALIN 100 MG CAP PO SCH (09:00)
[2017-02-23] MEDS: INSULIN ASPART 100 UNITS/ML 3 ML PEN SC SCH (09:04)
--- NOTE | 2017-02-23 09:17 | Progress Note ---
Internal Med Progress Note Date of Service: Feb 23, 2017. Provider Documentation: SUBJECTIVE: Seen and examined at bedside. Denies any weakness, change in vision and speech disturbance. Also denies any chest pain, SOB, fever, chills. Offers no other complaints. Family at bedside. Counseled on medication compliance. OBJECTIVE: Vital Signs-as noted below Physical Exam: Vitals signs as noted above General Appearance:Obese, no apparent distress Head: normocephalic, Atraumatic Eyes: normal inspection, EOMI, PERRLA Neck: supple, Trachea midline Respiratory/Chest: Normal breath sounds, CTA Cardiovascular: S1, S2, No murmur Abdomen/GI:Soft, Non tender, Bowel sounds present Extremities/Musculoskelatal:normal inspection, no edema Neurologic/Psych:AAOX3, grossly no focal neurological deficits Skin: normal color, warm Lab data as noted below. ASSESSMENT & PLAN: Patient is a 56 yr old male with history of TIAs, Non obstructive CAD, Sick Sinus Syndrome s/p Pacemaker placement, HTN, DM diet controlled presented with stroke like symptoms: An episode of LUE weakness/numbness, aphasia. STROKE LIKE SYMPTOMS H/O TIAs DD: secondary to hypertensive urgency, hypoglycemia, panic attack Continue ASA, plavix, Lipitor (Take ASA 243 daily at home) CT head: negative CT angio head and neck done 01/27/17: normal Repeat CT head: No acute process ECHO: as below Appreciate Neurology input: Discussed with on 02/23/17: No change in meds. Counseled the importance of medication compliance. HYPERTENSIVE URGENCY Admits to being non compliant with medications Home HTN meds resumed SICK SINUS SYNDROME S/P PACEMAKER Pacemaker Interrogation pending Follow up with cardiology as outpatient CAD continue Aspirin, Plavix, Statin, Carvedilol Stable ASTHMA Stable Continue Advair OBSTRUCTIVE SLEEP APNEA CPAP NEUROPATHY RESTLESS LEGS SYNDROME continue Lyrica, Ropinirole Follow up with Neurologist Dr. Toledo Recently got EMG: results pending per patient DVT PX SCDs CODE STATUS: FULL CODE DISPOSITION Continue to monitor Plan to discharge home today Follow up on 03/01/17 at 11:05AM Follow up with Rowan (Neurology) in 2-4 weeks Take medications regularly as advised Seek immediate medical attention if your symptoms reoccur or worsen PROCEDURES: ECHO * Left ventricular systolic function is normal. * Ejection Fraction = 55-60%. * There is moderate concentric left ventricular hypertrophy. * Grade I diastolic dysfunction, (abnormal relaxation pattern). * No significant valvular pathology. Vital Signs: Date Time Temp Pulse Resp B/P Pulse Ox O2 Delivery O2 Flow Rate FiO2 02/23/17 07:36 36.3 61 18 163/81 91 Room Air 02/23/17 04:00 36.9 76 16 148/79 95 02/23/17 04:00 CPAP 02/23/17 00:00 CPAP 02/23/17 00:00 36.6 67 18 153/80 95 CPAP 02/22/17 23:10 67 98 02/22/17 20:00 Room Air 02/22/17 20:00 36.6 67 16 164/93 96 Room Air 02/22/17 17:14 36.4 68 18 159/93 95 Room Air 02/22/17 16:00 Room Air 02/22/17 12:00 96 Room Air 02/22/17 11:49 37.1 62 16 150/83 96 Room Air Lab Results: Results Past 24 Hours Test 02/22/17 11:36 02/22/17 15:57 02/22/17 21:08 02/23/17 05:29 Range/Units Bedside Glucose 99 90 111 70-99 mg/dl White Blood Count 6.18 4.8-10.8 K/uL Red Blood Count 4.65 4.7-6.1 M/uL Hemoglobin 13.2 14.0-18.0 g/dL Hematocrit 39.7 42-52 % Mean Corpuscular Volume 85.4 80-100 fL Mean Corpuscular Hemoglobin 28.4 25-34 pg Mean Corpuscular Hemoglobin Concent 33.2 32-36 g/dl Platelet Count 165 130-400 K/uL Mean Platelet Volume 9.4 7.4-10.4 fL Neutrophils (%) (Auto) 62.5 % Lymphocytes (%) (Auto) 22.2 % Monocytes (%) (Auto) 12.3 % Eosinophils (%) (Auto) 2.6 % Basophils (%) (Auto) 0.2 % Neutrophils # (Auto) 3.87 1.4-6.5 K/uL Lymphocytes # (Auto) 1.37 1.2-3.4 K/uL Monocytes # (Auto) 0.76 0.11-0.59 K/uL Eosinophils # (Auto) 0.16 0-0.5 K/uL Basophils # (Auto) 0.01 0-0.2 K/uL RDW Standard Deviation 42.6 36.4-46.3 fL RDW Coefficient of Variation 13.8 11.5-14.5 % Immature Granulocyte % (Auto) 0.2 % Immature Granulocyte # (Auto) 0.01 0.00-0.02 K/uL Sodium Level 144 136-145 mmol/L Potassium Level 3.7 3.5-5.1 mmol/L Chloride Level 109 98-107 mmol/L Carbon Dioxide Level 28 21-32 mmol/L Anion Gap 7.0 3-11 mmol/L Blood Urea Nitrogen 11 7-18 mg/dl Creatinine 0.85 0.60-1.40 mg/dl Est Creatinine Clear Calc Drug Dose 130.5 ml/min Estimated GFR () 112.1 Estimated GFR (Non- 96.7 BUN/Creatinine Ratio 12.7 10-20 Random Glucose 94 70-99 mg/dl Calcium Level 8.3 8.5-10.1 mg/dl Test 02/23/17 07:47 Range/Units Bedside Glucose 92 70-99 mg/dl
--- NOTE | 2017-02-23 09:25 | Discharge Summary ---
Discharge Summary Date of Service Feb 23, 2017. Discharge Summary Admission Date: Feb 21, 2017 at 15:54 Discharge Date: Feb 23, 2017 Discharge Disposition: Home Principal Diagnosis: Stroke like symptoms Procedures: ECHO * Left ventricular systolic function is normal. * Ejection Fraction = 55-60%. * There is moderate concentric left ventricular hypertrophy. * Grade I diastolic dysfunction, (abnormal relaxation pattern). * No significant valvular pathology. CT head: 1. No acute intracranial findings. Sensitivity for detection of intracranial hemorrhage is diminished on this unenhanced exam but none is identified. 2. No intracranial masses or pathologic enhancement. Carotid Duplex: No hemodynamically significant stenosis seen within the carotid arteries. CXR: No active disease in the chest. Consultations: Neurology Pending Studies/Follow-Up: Follow up on 03/01/17 at 11:05AM Follow up with Rowan (Neurology) in 2-4 weeks Follow up with your spin tank tender as advised. Your pacemaker interrogation results are pending at time of discharge. Take medications regularly as advised Seek immediate medical attention if your symptoms reoccur or worsen Medication Reconciliation Continued Medications: Amiloride Hcl (Amiloride Hcl) 5 Mg Tab 1 TAB PO DAILY Aspirin (Aspirin Ec) 81 Mg Tab 243 MG PO DAILY Atorvastatin (Lipitor) 80 Mg Tab 1 TAB PO DAILY for 30 Days, #30 TAB 5 Refills Carvedilol (Carvedilol) 25 Mg Tab 1 TAB PO DAILY, #30 Clopidogrel Bisulfate (Clopidogrel) 75 Mg Tab 1 TAB PO DAILY, #30 Fluticasone Prop/Salmeterol (Advair Diskus 250/50 60 Dose) 1 Ea Aerp 1 PUFFS INH BID for 90 Days, #3 INHALER 3 Refills Ipratropium-Albuterol (Combivent Respimat) 1 Aer Aer 1 PUFFS INH QID PRN for Shortness of Breath, INH Lisinopril (Lisinopril) 40 Mg Tab 1 TAB PO DAILY, #30 Nifedipine (Nifedipine Er) 60 Mg Tab 90 MG PO DAILY for 90 Days, #135 TAB 3 Refills Nitroglycerin (Nitrostat) 0.4 Mg Tab 0.4 MG UT PRN, BTL Pregabalin (Lyrica) 200 Mg Cap 200 MG PO BID, CAP Ropinirole (Requip) 0.5 Mg Tab 0.5 MG PO BID, TAB Ropinirole (Requip) 1 Mg Tab 1 MG PO HS WITH 0.5MG TABLET, TAB Sertraline (Zoloft) 100 Mg Tab 100 MG PO DAILY, TAB Admission Information HPI (per Admitting provider): 56 year old male with history of TIAs on Plavix and Aspirin, Non obstructive CAD , Sick Sinus Syndrome s/p Pacemaker placement, HTN, DM diet controlled, other problems noted below presenting with stroke like symptoms- episode of left arm weakness/numbness, aphasia this afternoon. Patient follows with Dr. Richmond for Primary Care, Dr. Spencer for Neuropathy. Patient was seen at the [facility] last 01/27/17 for neck pain and left arm numbness. CT angio head and neck was normal. This morning, patient admits to not being able to take his medications. 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 He managed to drive to the urgent care and was directed to the ER. At the ER, BP was systolic 199, CT head negative. He was given nitropaste which improved BP to 160s. On my exam, patient confirms that his symptoms have resolved except for left arm numbness. Family reports that he his back to his baseline mental status and speech. No other focal neuro deficits. Denies chest pain, dyspnea, has mild parietal headache. No nausea, vomiting, fever/chills. No other symptoms.; Physical Exam (per Admitting): General Appearance: WD/WN, no apparent distress Head: normocephalic, atraumatic Eyes: normal inspection, PERRL, EOMI, sclerae normal ENT: normal ENT inspection, hearing grossly normal, pharynx normal Neck: supple, no adenopathy, thyroid normal, no JVD, trachea midline Respiratory/Chest: chest non-tender, lungs clear, normal breath sounds, no respiratory distress, no accessory muscle use Cardiovascular: regular rate, rhythm, no edema, no JVD, no murmur Abdomen/GI: normal bowel sounds, non tender, soft, no organomegaly Back: normal inspection, no CVA tenderness Extremities/Musculoskelatal: normal inspection, no calf tenderness, normal capillary refill, no pedal edema, normal range of motion Neurologic/Psych: spring tester II-XII nml as tested, alert, normal mood/affect, normal reflexes, oriented x 3, + pertinent finding (motor 5/5 on all extremities , sensation 100% on all extremities, except left arm/hand ~50%) Skin: normal color, warm/dry, no rash Lymphatic: no adenopathy Hospital Course Patient is a 56 yr old male with history of TIAs, Non obstructive CAD, Sick Sinus Syndrome s/p Pacemaker placement, HTN, DM diet controlled presented with stroke like symptoms: An episode of LUE weakness/numbness, aphasia. STROKE LIKE SYMPTOMS H/O TIAs DD: secondary to hypertensive urgency, hypoglycemia, panic attack Continue ASA, plavix, Lipitor (Take ASA 243 daily at home) CT head: negative CT angio head and neck done 01/27/17: normal Repeat CT head: No acute process ECHO: as below Appreciate Neurology input: Discussed with on 02/23/17: No change in meds. Counseled the importance of medication compliance. HYPERTENSIVE URGENCY Admits to being non compliant with medications Home HTN meds resumed SICK SINUS SYNDROME S/P PACEMAKER Pacemaker Interrogation pending Follow up with cardiology as outpatient CAD continue Aspirin, Plavix, Statin, Carvedilol Stable ASTHMA Stable Continue Advair OBSTRUCTIVE SLEEP APNEA CPAP NEUROPATHY RESTLESS LEGS SYNDROME continue Lyrica, Ropinirole Follow up with Neurologist Dr. Toledo Recently got EMG: results pending per patient DVT PX SCDs CODE STATUS: FULL CODE DISPOSITION Continue to monitor Plan to discharge home today Follow up on 03/01/17 at 11:05AM Follow up with Rowan (Neurology) in 2-4 weeks Take medications regularly as advised Seek immediate medical attention if your symptoms reoccur or worsen PROCEDURES: ECHO * Left ventricular systolic function is normal. * Ejection Fraction = 55-60%. * There is moderate concentric left ventricular hypertrophy. * Grade I diastolic dysfunction, (abnormal relaxation pattern). * No significant valvular pathology. Total time spent on discharge = This includes examination of the patient, discharge planning, medication reconciliation, and communication with other providers. Discharge Instructions Discharge Instructions Date of Service Feb 23, 2017. Admission Reason for Admission: Stroke-Like Symptoms Discharge Discharge Diagnosis / Problem: Stroke like symptoms Discharge Goals Goal(s): Decrease discomfort, Improve function Activity Recommendations Activity Limitations: resume your previous activity Exercise/Sports Limitations: as tolerated . Instructions / Follow-Up Instructions / Follow-Up Follow up on 03/01/17 at 11:05AM Follow up with Rowan (Neurology) in 2-4 weeks Follow up with your spin tank tender as advised. Your pacemaker interrogation results are pending at time of discharge. Take medications regularly as advised Seek immediate medical attention if your symptoms reoccur or worsen Risk Factors for Stroke: You can reduce your chances of stroke by working with your medical provider to adopt a healthy lifestyle. Some specific ways to lower your chance of stroke are: * If you are a smoker, now is the time to stop smoking cigarettes * If you are diabetic, improve the control of your blood sugars * Avoid excessive amounts of alcohol * Control high blood pressure * Lose weight if you are overweight * Be sure to lead an active lifestyle * Eat a healthy diet low in salt, cholesterol and fat You should know about other risk factors for stroke that you are unable to control. These include: * Age 55 years or older * Male gender * Certain racial groups: , or / * Family History of Stroke, Mini stroke or Heart Attack * Sickle Cell Disease Follow Up: It is important for you to keep your follow up appointments with your medical provider. Current Hospital Diet Patient's current hospital diet: Diabetes Type 2 Diet, AHA Diet (Heart Healthy) Discharge Diet Recommended Diet: AHA Diet (Heart Healthy), Diabetes Type 2 Diet Pending Studies Studies pending at discharge: yes List of pending studies: Pacemaker Interrogation Laboratory Results Hemoglobin A1c Test 02/22/17 04:25 Range/Units Estimated Average Glucose 134 mg/dl Hemoglobin A1c 6.3 H 4.5-5.6 % Lipid Panel Test 02/22/17 04:25 Range/Units Triglycerides Level 96 0-150 mg/dl Cholesterol Level 186 0-200 mg/dl HDL Cholesterol 41 mg/dl Cholesterol/HDL Ratio 4.5 LDL Cholesterol, Calculated 126 mg/dl Medical Emergencies . Who to Call and When: Medical Emergencies: Call 911 immediately if you experience any of the following warning signs and symptoms of Stroke: * Sudden numbness or weakness of the face, arm or leg, especially on one side of the body * Sudden confusion, trouble speaking or understanding * Sudden trouble seeing in one or both eyes * Sudden trouble walking, dizziness, loss of balance or coordination * Sudden severe headache with no cause Do not delay calling 911 if you experience any warning signs or symptoms of a stroke. Delay in seeking medical attention may affect what treatments can be given to you. . Non-Emergent Contact Non-Emergency issues call your: Primary Care Provider, Neurologist Call Non-Emergent contact if: you have a fever, your pain is not controlled, your pain is worsening, your pain is unusual for you, you have any medication questions If your develop any weakness, slurring of speech, change in vision. . . "Provider Documentation" section prepared by Maurice Merino. Stroke Core Measures Reason no t-PA for Stroke: Treatment not indicated Reason no antithrom by day 2: Treatment provided - N/A Reason no antithrom at D/C: Treatment provided - N/A Reason no statin at D/C: Treatment provided - N/A Reason no anticoag w/a fib: Treatment not indicated VTE Core Measure Inpt VTE Proph given/why not?: SCD's
[2017-02-23 09:26] VITALS: BP 163/81; PULSE 61; TEMP 36.3; O2SAT 91
== END 2017-02-23 09:40 | disposition home or self-care (01) | DRG 886 ==
LOC: ENRESERVTM → ENRESERVDT → EDBD 13:40 → C.EDC 13:42 → C.MED 15:54
PROVIDERS: ADMIT Internal Medicine; ATTEND Internal Medicine
DX: R48.2 Apraxia (principal); G81.94 Hemiplegia, unspecified affecting left nondominant side; I16.0 Hypertensive urgency; Z79.82 Long term (current) use of aspirin; Z79.02 Long term (current) use of antithrombotics/antiplatelets; I25.10 Atherosclerotic heart disease of native coronary artery without angina pectoris; Z95.0 Presence of cardiac pacemaker; I49.5 Sick sinus syndrome; J45.909 Unspecified asthma, uncomplicated; G47.33 Obstructive sleep apnea (adult) (pediatric); G25.81 Restless legs syndrome; I10 Essential (primary) hypertension; Z87.891 Personal history of nicotine dependence; E11.649 Type 2 diabetes mellitus with hypoglycemia without coma; F41.0 Panic disorder [episodic paroxysmal anxiety]; R20.0 Anesthesia of skin; Z86.73 Personal history of transient ischemic attack (TIA), and cerebral infarction without residual deficits

== ENCOUNTER 2021-05-21 17:08 | Observation (INO) ==
[2021-05-21] MEDS ORDERED: ASPIRIN CHEW 324 MG PO STA (17:23)
[2021-05-21] MEDS ORDERED: NITROGLYCERIN 2% OINTMENT 30GM TUBE EXT STA (17:23)
--- NOTE | 2021-05-21 17:29 | Emergency Department Note ---
Impression & Plan Precordial chest pain, Weakness, SOB (shortness of breath) ED Provider Note NAME: LING DUCKWORTH JR AGE: 60 SEX: M : 1960 ARRIVES VIA: Ambulance INFORMANT: [Patient] ED PROVIDER(S): [Spencer Larry MD] CHIEF COMPLAINT: Weakness HISTORY OF PRESENT ILLNESS: The patient is a 60-year-old male presents with about an hour and a half of weakness. He states he just feels washed out and exhausted. The patient states that he has not had fever. There has been no cough or congestion. No abdominal pain or new urinary complaints. The patient admits that lately, with exertion, he gets short of breath and has pressure across his chest that he rates as an 8 on a scale of 1-10. His left arm gets numb and he gets sweaty. No nausea. He typically takes nitroglycerin and this seems to help relieve the symptoms along with rest. Patient states that he has been having more of these episodes as of late. Patient does have some coronary disease history. He does see cardiology routinely. He is not vaccinated against COVID-19 and has had no Covid exposures recently. REVIEW OF SYSTEMS: See HPI for pertinent positives and negatives. A total of ten systems were reviewed and were otherwise negative. PMHx/PSHx: See Below SOCIAL HISTORY: See Below. PHYSICAL EXAM: GENERAL: Patient is in no acute distress. HEENT: No acute trauma, normocephalic atraumatic, mucous membranes moist, no nasal congestion, no scleral icterus. NECK: No stridor, no adenopathy, no meningismus, trachea is midline. LUNGS: Clear to auscultation bilaterally, no wheeze, no rhonchi, breath sounds equal. HEART: Without murmurs gallops or rubs, regular rate and rhythm. ABDOMEN: Soft, nontender, bowel sounds positive, no hernias, no peritonitis. EXTREMITIES: No cyanosis or edema, full range of motion of all the joints without pain or difficulty, no signs for acute trauma. NEUROLOGIC: Oriented x 3, no acute motor or sensory deficits, no focal weakness. SKIN: No rash, no jaundice, no diaphoresis. DIFFERENTIAL DIAGNOSIS: Infection, dehydration, metabolic abnormality, hypo/hyperglycemia, COVID-19, angina, NV, electrolyte disturbance, anemia, hypoxia, cardiac sources, intracerebral event, toxicologic issues, stroke, TIA, as well as other pathologies. EMERGENCY DEPARTMENT COURSE/PROCEDURES: ECG: Indication was chest pain. The ECG shows an atrial pacemaker with a rate of 61. There is no ST elevation, no PVCs. The QTc is 426. Continuous Cardiac Monitoring: An order was placed for continuous cardiac monitoring. The monitor shows a rate of 62 with an atrial pacemaker. MEDICAL DECISION MAKING: There is no leukocytosis or concerning anemia. There is a normal platelet count. No significant electrolyte abnormality or kidney failure. No concerning liver enzyme elevation. No evidence for pancreatitis. The patient appeared to be in a euthyroid state. ECG showed an atrial pacemaker, no acute ischemic change. Cardiac enzyme testing x1 is not consistent with acute cardiac injury. Covid testing returned negative. Lyme disease testing returned negative. Chest x-ray did not show pneumonia or CHF. On exam, the patient did appear comfortable, he complained of some mild chest pressure. Patient was given oral aspirin, 1 inch of nitroglycerin paste. He was given a 500 cc saline bolus. Patient is feeling improved. Given his exertional chest pain and dyspnea, given his history of coronary disease, I do think a hospital stay is needed. He describes anginal symptoms. I did speak with the case management team. The on- call hospitalist was consulted. Further cardiac work-up is warranted. Past Med/Surg History Medical History Anxiety Asthma Barretts esophagus CAD (coronary artery disease) cath 2016 - mild, non obstructive Chronic back pain Depression Diabetes mellitus, type 2 DIET CONTROLLED Hyperlipidemia Hypertension Osteoarthritis Pacemaker 2008. HX OF SYMPTOMATIC BRADYCARDIA, HR<30. LAST REMOTE CHECK ON 01/09. Sleep apnea CPAP SSS (sick sinus syndrome) Transient ischemic attack (TIA) TOTAL: 3, LAST ONE PRIOR TO 2008. PT STATES HE HAS VERY MILD WEAKNESS ON LEFT SIDE/NEUROPATHY. OCCASIONAL DIFFICULTY FINDING RIGHT WORDS. Surgical History History of arthroscopy LEFT KNEE History of carpal tunnel release B/L History of colonoscopy 4+ History of elbow surgery LEFT X 2 - ULNAR NERVE RELEASE History of esophagogastroduodenoscopy (EGD) 4+ History of gastric bypass SEP 2007 History of herniorrhaphy UMBILICAL History of testicular surgery History of tonsillectomy Pacemaker IMPLANT SEP 2009 Social History Smoking Status: Former smoker Tobacco Type: Cigarettes Cigarettes Per Day: QUIT IN 2004. 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 Beliefs That Will Affect Care: None Current Living Situation: Spouse Feels Safe at Home: Yes Assistive Devices: Cane, CPAP, Denture - Upper, Denture - Lower and Glasses Allergies Allergies Allergy/AdvReac Type Severity Reaction Status Date / Time armodafinil AdvReac Severe "ZONED OUT" Verified 05/21/21 18:39 baclofen AdvReac Intermediate "ZONED OUT" Verified 05/21/21 18:39 NSAIDS (Non-Steroidal AdvReac Mild PER MD- Verified 05/21/21 18:39 Anti-Inflamma D/T GASTRIC BYPASS SURGERY Home Meds Home Medications Medication Instructions Recorded Confirmed amiloride 5 mg PO HS 01/26/19 05/21/21 aspirin 81 mg PO HS 01/26/19 05/21/21 carvedilol 12.5 mg PO BID 01/26/19 05/21/21 lisinopril 20 mg PO HS 01/26/19 05/21/21 nitroglycerin [Nitrostat] 1 tab SUBLINGUAL UD PRN 01/26/19 05/21/21 albuterol sulfate [Ventolin HFA] 2 puff INHALATION Q4H PRN 05/21/21 05/21/21 cholecalciferol (vitamin D3) 125 mcg PO DAILY 05/21/21 05/21/21 [Vitamin D3] clopidogrel 75 mg PO DAILY 05/21/21 05/21/21 duloxetine [Cymbalta] 90 mg PO QAM 05/21/21 05/21/21 ferrous sulfate [iron] 325 mg PO HS 05/21/21 05/21/21 fluticasone propion-salmeterol 1 inh INHALATION HS 05/21/21 05/21/21 [Advair Diskus] gabapentin 100 mg PO TID 05/21/21 05/21/21 levothyroxine 25 mcg PO DAILY 05/21/21 05/21/21 nifedipine 60 mg PO DAILY 05/21/21 05/21/21 rosuvastatin 40 mg PO DAILY 05/21/21 05/21/21 tamsulosin 0.4 mg PO DAILY 05/21/21 05/21/21 Previous Rx's Medication Instructions Recorded oxycodone-acetaminophen [Percocet] 1 - 2 tab PO Q6H PRN #30 tab 02/17/19 Results & Data (ED) Vital Signs Vital Signs - 24 hr 05/21/21 17:08 05/21/21 17:44 05/21/21 18:00 Temperature 36.6 C Temperature Source Oral Pulse Rate 65 Pulse Rate [Apical] 62 Pulse Rhythm Regular Pulse Rhythm [Apical] Regular Pulse Strength Normal Pulse Strength [Apical] Respiratory Rate 16 16 Respiratory Effort / Characteristics Non-Labored Spontaneous Non-Labored Spontaneous Respiratory Depth Normal Normal Respiratory Pattern Regular Regular Blood Pressure 125/74 Blood Pressure [Right Arm] 113/71 Blood Pressure Mean 91 Blood Pressure Mean [Right Arm] 85 Blood Pressure Position Lying Blood Pressure Position [Right Arm] Pulse Oximetry 96 95 Oxygen Delivery Method Room Air Room Air Room Air Sepsis Recent Fever Within 48 Hours No Sepsis New/Unexplained Change in Mental Status No Sepsis Action Taken by Nursing No Action Required 05/21/21 19:00 Temperature Temperature Source Pulse Rate Pulse Rate [Apical] 60 Pulse Rhythm Pulse Rhythm [Apical] Regular Pulse Strength Pulse Strength [Apical] Normal Respiratory Rate 18 Respiratory Effort / Characteristics Non-Labored Spontaneous Respiratory Depth Normal Respiratory Pattern Regular Blood Pressure Blood Pressure [Right Arm] 131/79 Blood Pressure Mean Blood Pressure Mean [Right Arm] 96 Blood Pressure Position Blood Pressure Position [Right Arm] Lying Pulse Oximetry 94 Oxygen Delivery Method Room Air Sepsis Recent Fever Within 48 Hours Sepsis New/Unexplained Change in Mental Status Sepsis Action Taken by Assisted Medications Current Medication List: was personally reviewed by me Laboratory Data Attestation: I reviewed the patient's lab results. Result diagrams: 05/21/21 17:40 05/21/21 17:40 Lab Results 05/21/21 05/21/21 05/21/21 Range/Units 17:40 17:40 17:40 WBC 6.86 (4.8-10.8) K/uL RBC 4.49 L (4.7-6.1) M/uL Hgb 14.0 (14.0-18.0) g/dL Hct 42.3 (42-52) % MCV 94.2 (80-100) fL MCH 31.2 (25-34) pg MCHC 33.1 (32-36) g/dL RDW Std Deviation 47.1 H (36.4-46.3) fL RDW Coeff of Tawana 13.6 (11.5-14.5) % Plt Count 161 (130-400) K/uL MPV 9.8 (7.4-10.4) fL Immature Gran % (Auto) 0.0 % Neut % (Auto) 68.0 % Lymph % (Auto) 18.4 % Elk % (Auto) 10.3 % Eos % (Auto) 3.2 % Baso % (Auto) 0.1 % Neut # (Auto) 4.66 (1.4-6.5) K/uL Lymph # (Auto) 1.26 (1.2-3.4) K/uL Elk # (Auto) 0.71 H (0.11-0.59) K/uL Eos # (Auto) 0.22 (0-0.5) K/uL Baso # (Auto) 0.01 (0-0.2) K/uL Immature Gran # (Auto) 0.00 (0.00-0.02) K/uL Sodium 141 (136-145) mmol/L Potassium 4.2 (3.5-5.1) mmol/L Chloride 111 H (98-107) mmol/L Carbon Dioxide 28 (21-32) mmol/L Anion Gap 2.0 L (3-11) BUN 11 (7-18) mg/dl Creatinine 0.82 (0.6-1.4) mg/dl Est Cr Clr Drug Dosing 125.5 ml/min Est GFR ( Amer) 110.6 ml/min Est GFR (Non-Af Amer) 95.4 ml/min BUN/Creatinine Ratio 13.8 (10-20) Glucose 122 H (70-99) mg/dl Calcium 8.5 (8.5-10.1) mg/dl Magnesium 2.4 (1.8-2.4) mg/dl Total Bilirubin 0.9 (0.2-1) mg/dl AST 17 (15-37) U/L ALT 35 (12-78) U/L Alkaline Phosphatase 97 (45-117) U/L Troponin I < 0.015 (0-0.045) ng/ml Total Protein 6.9 (6.4-8.2) gm/dl Albumin 3.7 (3.4-5.0) gm/dl Globulin 3.2 (2.5-4.0) gm/dl Albumin/Globulin Ratio 1.2 (0.9-2) TSH 2.740 (0.300-4.500) uIu/ml COVID-19 Eval Order Covid19 at [facility] SARS-CoV-2 (PCR) (Negative) 05/21/21 Range/Units 17:40 WBC (4.8-10.8) K/uL RBC (4.7-6.1) M/uL Hgb (14.0-18.0) g/dL Hct (42-52) % MCV (80-100) fL MCH (25-34) pg MCHC (32-36) g/dL RDW Std Deviation (36.4-46.3) fL RDW Coeff of Tawana (11.5-14.5) % Plt Count (130-400) K/uL MPV (7.4-10.4) fL Immature Gran % (Auto) % Neut % (Auto) % Lymph % (Auto) % Elk % (Auto) % Eos % (Auto) % Baso % (Auto) % Neut # (Auto) (1.4-6.5) K/uL Lymph # (Auto) (1.2-3.4) K/uL Elk # (Auto) (0.11-0.59) K/uL Eos # (Auto) (0-0.5) K/uL Baso # (Auto) (0-0.2) K/uL Immature Gran # (Auto) (0.00-0.02) K/uL Sodium (136-145) mmol/L Potassium (3.5-5.1) mmol/L Chloride (98-107) mmol/L Carbon Dioxide (21-32) mmol/L Anion Gap (3-11) BUN (7-18) mg/dl Creatinine (0.6-1.4) mg/dl Est Cr Clr Drug Dosing ml/min Est GFR ( Amer) ml/min Est GFR (Non-Af Amer) ml/min BUN/Creatinine Ratio (10-20) Glucose (70-99) mg/dl Calcium (8.5-10.1) mg/dl Magnesium (1.8-2.4) mg/dl Total Bilirubin (0.2-1) mg/dl AST (15-37) U/L ALT (12-78) U/L Alkaline Phosphatase (45-117) U/L Troponin I (0-0.045) ng/ml Total Protein (6.4-8.2) gm/dl Albumin (3.4-5.0) gm/dl Globulin (2.5-4.0) gm/dl Albumin/Globulin Ratio (0.9-2) TSH (0.300-4.500) uIu/ml COVID-19 Eval Order SARS-CoV-2 (PCR) NEGATIVE (Negative) Administered Medications Discontinued Medications Aspirin (Aspirin Chew 324 Mg) 324 mg PO NOW STA Stop: 05/21/21 17:24 Last Admin: 05/21/21 17:30 Dose: 324 mg Documented by: [id number] Sodium Chloride (Nss) 500 mls @ 999 mls/hr IV .Q31M EDISON Stop: 05/21/21 18:00 Last Infusion: 05/21/21 18:05 Dose: 0 mls/hr Documented by: [id number] Admin: 05/21/21 17:32 Dose: 999 mls/hr Documented by: [id number] Nitroglycerin (Nitroglycerin 2% Ointment 30gm Tube) 1 inch EXT NOW STA Stop: 05/21/21 17:24 Last Admin: 05/21/21 17:31 Dose: 1 inch Documented by: [id number] Imaging Data Radiologist's Impression: Chest X-Ray 05/21/21 17:24 SINGLE VIEW CHEST CLINICAL HISTORY: Generalized weakness. FINDINGS: An AP, portable, upright chest radiograph is compared to study dated 02/02/2019. A 2-lead cardiac pacemaker is unchanged in position. The heart is enlarged. The pulmonary vasculature is noncongested. There is mild bibasilar atelectasis. The lungs and pleural spaces are otherwise clear. No pneumothorax is seen. The skeletal structures appear osteopenic. The bony thorax is grossly intact. IMPRESSION: 1. Cardiomegaly and cardiac pacemaker with no radiographic evidence of congestive failure. 2. No airspace consolidation or large pleural effusion is identified. ACT 112: Negative or not required by law. Electronically signed by: Spencer Collins M.D. 05/21/2021 6:54 PM Discharge Plan Visit Data Chief Complaint: Weakness ED Provider: Spencer Larry Discharge Problem: Precordial chest pain, Weakness, SOB (shortness of breath) Patient Disposition: Admitted As Inpatient Condition: Fair Discharge Instructions Interventions: ED Discharge Assessment Last Done: 05/21/21 20:52
[2021-05-21] MEDS ORDERED: SODIUM CHLORIDE 0.9% 500 ML IV SCH (17:30)
[2021-05-21 17:54] LABS: Basophils # (auto) 0.01 K/uL (0-0.2); Basophils % (auto) 0.1 %; Eosinophils # (auto) 0.22 K/uL (0-0.5); Eosinophils % (auto) 3.2 %; Hematocrit (blood only) 42.3 % (42-52); Lymphocytes # (auto) 1.26 K/uL (1.2-3.4); Lymphocytes % (auto) 18.4 %; Mean Corpuscular Hemoglobin 31.2 pg (25-34); Mean Corpuscular Hgb Conc 33.1 g/dL (32-36); Mean Corpuscular Volume 94.2 fL (80-100); Mean Platelet Volume 9.8 fL (7.4-10.4); Monocytes # (auto) 0.71 K/uL (0.11-0.59); Monocytes % (auto) 10.3 %; Neutrophils # (auto) 4.66 K/uL (1.4-6.5); Platelet Count 161 K/uL (130-400); RDW Coefficient of Variation 13.6 % (11.5-14.5); RDW Standard Deviation 47.1 fL (36.4-46.3); Red Blood Count 4.49 M/uL (4.7-6.1); White Blood Count 6.86 K/uL (4.8-10.8)
[2021-05-21 18:14] LABS: Alanine Aminotransferase 35 U/L (12-78); Albumin Level 3.7 gm/dl (3.4-5.0); Aspartate Aminotransferase 17 U/L (15-37); BUN Creatinine Ratio 13.8 (10-20); Blood Urea Nitrogen 11 mg/dl (7-18); Calcium 8.5 mg/dl (8.5-10.1); Carbon Dioxide 28 mmol/L (21-32); Chloride 111 mmol/L (98-107); Creatinine Clr Calc Pharmacy 125.5 ml/min; Est GFR (African American) 110.6 ml/min; Est GFR (Non-African American) 95.4 ml/min; Glucose 122 mg/dl (70-99); Magnesium 2.4 mg/dl (1.8-2.4); Potassium 4.2 mmol/L (3.5-5.1); Sodium 141 mmol/L (136-145)
[2021-05-21 18:25] LABS: Albumin Globulin Ratio 1.2 (0.9-2); Alkaline Phosphatase 97 U/L (45-117); Bilirubin,Total 0.9 mg/dl (0.2-1); Globulin 3.2 gm/dl (2.5-4.0); Total Protein 6.9 gm/dl (6.4-8.2); Troponin I < 0.015 ng/ml (0-0.045)
--- NOTE | 2021-05-21 18:55 | XRay Report ---
SINGLE VIEW CHEST CLINICAL HISTORY: Generalized weakness. FINDINGS: An AP, portable, upright chest radiograph is compared to study dated 02/02/2019. A 2-lead ca rdiac pacemaker is unchanged in position. The heart is enlarged. The pulmonary vasculature is noncong ested. There is mild bibasilar atelectasis. The lungs and pleural spaces are otherwise clear. No pneu mothorax is seen. The skeletal structures appear osteopenic. The bony thorax is grossly intact. IMPRESSION: 1. Cardiomegaly and cardiac pacemaker with no radiographic evidence of congestive failure. 2. No airspace consolidation or large pleural effusion is identified. ACT 112: Negative or not required by law. Electronically signed by: Spencer Collins M.D. 05/21/2021 6:54 PM
--- NOTE | 2021-05-21 19:23 | History & Physical Report ---
Date of Service May 21, 2021 Assessment & Plan (1) Chest pain: (2) CAD (coronary artery disease): (3) SSS (sick sinus syndrome): (4) Pacemaker: (5) Diabetes mellitus, type 2: (6) History of TIA (transient ischemic attack): Please refer to Dr. Levine's addendum for assessment and plan. History of Present Illness Chief Complaint: Chest pain Primary Care Provider: Dae Joseph MD 60-year-old male PMH diet-controlled DM type II, asthma, mild nonobstructive CAD per cardiac cath 2015, SSS s/p pacemaker, HTN, Rosado's esophagus, history of gastric bypass, history of TIA, hypothyroidism, and other problems listed below who presents the ED for evaluation of chest pain. Patient reports having episodes of chest pain over the past several years. Noted cardiac cath 2015 showed mild, nonobstructive disease and nuclear stress test 07/2020 was nonischemic. Patient notes that over the past 2 weeks, he has had increasing chest discomfort. Patient describes the pain as a pressure with radiation into his left shoulder and left arm. He reports associated shortness of breath. He reports the symptoms come on with minimal exertion. He has been taking nitroglycerin at least every other day. Today, patient had the most severe of his chest discomfort episodes and therefore presented to the ED for further evaluation. Patient denies associated diaphoresis, lightheadedness, dizziness, syncopal event. No other recent illnesses, fevers, chills. Denies abdominal pain, nausea, vomiting, diarrhea. No urinary symptoms. In the ED, initial troponin is negative and EKG demonstrates a paced rhythm and does not show any acute ST changes. Patient was given a full dose aspirin and topical nitroglycerin. He reports chest pressure is currently very mild and much improved from earlier today. HR and BP are stable. Allergies Allergy/AdvReac Type Severity Reaction Status Date / Time armodafinil AdvReac Severe "ZONED OUT" Verified 05/21/21 18:39 baclofen AdvReac Intermediate "ZONED OUT" Verified 05/21/21 18:39 NSAIDS (Non-Steroidal AdvReac Mild PER MD- Verified 05/21/21 18:39 Anti-Inflamma D/T GASTRIC BYPASS SURGERY Home Medications Medication Instructions Recorded Confirmed Type amiloride 5 mg PO HS 01/26/19 05/21/21 History aspirin 81 mg PO HS 01/26/19 05/21/21 History carvedilol 12.5 mg PO BID 01/26/19 05/21/21 History lisinopril 20 mg PO HS 01/26/19 05/21/21 History nitroglycerin [Nitrostat] 1 tab SUBLINGUAL UD PRN 01/26/19 05/21/21 History oxycodone-acetaminophen [Percocet] 1 - 2 tab PO Q6H PRN #30 tab 02/17/19 05/21/21 Rx albuterol sulfate [Ventolin HFA] 2 puff INHALATION Q4H PRN 05/21/21 05/21/21 History cholecalciferol (vitamin D3) 125 mcg PO DAILY 05/21/21 05/21/21 History [Vitamin D3] clopidogrel 75 mg PO DAILY 05/21/21 05/21/21 History duloxetine [Cymbalta] 90 mg PO QAM 05/21/21 05/21/21 History ferrous sulfate [iron] 325 mg PO HS 05/21/21 05/21/21 History fluticasone propion-salmeterol 1 inh INHALATION HS 05/21/21 05/21/21 History [Advair Diskus] gabapentin 100 mg PO TID 05/21/21 05/21/21 History levothyroxine 25 mcg PO DAILY 05/21/21 05/21/21 History nifedipine 60 mg PO DAILY 05/21/21 05/21/21 History rosuvastatin 40 mg PO DAILY 05/21/21 05/21/21 History tamsulosin 0.4 mg PO DAILY 05/21/21 05/21/21 History Past Med/Surg History Medical History Anxiety Asthma Barretts esophagus CAD (coronary artery disease) cath 2016 - mild, non obstructive Chronic back pain Depression Diabetes mellitus, type 2 DIET CONTROLLED Hyperlipidemia Hypertension Osteoarthritis Pacemaker 2008. HX OF SYMPTOMATIC BRADYCARDIA, HR<30. LAST REMOTE CHECK ON 01/09. Sleep apnea CPAP SSS (sick sinus syndrome) Transient ischemic attack (TIA) TOTAL: 3, LAST ONE PRIOR TO 2008. PT STATES HE HAS VERY MILD WEAKNESS ON LEFT SIDE/NEUROPATHY. OCCASIONAL DIFFICULTY FINDING RIGHT WORDS. Surgical History History of arthroscopy LEFT KNEE History of carpal tunnel release B/L History of colonoscopy 4+ History of elbow surgery LEFT X 2 - ULNAR NERVE RELEASE History of esophagogastroduodenoscopy (EGD) 4+ History of gastric bypass SEP 2007 History of herniorrhaphy UMBILICAL History of testicular surgery History of tonsillectomy Pacemaker IMPLANT SEP 2009 Social History Smoking Status: Never smoker Tobacco Type: Cigarettes Cigarettes Per Day: QUIT IN 2004. SMOKED 1PPD X 30-35 YEARS; Second Hand Exposure: No; Do You Dip or Chew Tobacco: No; Tobacco Cessation Education Requested by Patient: No Hx Alcohol Use: No Hx Substance Use: No Preferred Language: Gambian Communication Ability: Effective Technical Translator Required: No Beliefs That Will Affect Care: None Current Living Situation: Spouse Other Information That Helps Us Care for You: No Feels Safe at Home: Yes Safety Concerns: Feels Safe At This Time Assistive Devices: Cane Review of Systems Review of Systems: ROS per HPI, all other systems reviewed and negative Physical Exam Constitutional: WD/WN, vitals as above + obese Eyes: PERRL, conjunctivae normal, anicteric sclerae ENMT: external ear and nose normal, oropharynx normal Respiratory: normal respiratory effort, lungs clear to auscultation Cardiovascular: Rate/Rhythm: regular rate and regular rhythm Vessels: normal peripheral pulses Extremities: no edema Gastrointestinal (Abdomen): normal bowel sounds, soft, nontender, no hepatosplenomegaly Musculoskeletal: no cyanosis or clubbing, extremities motor strength 5/5 Skin: no rashes, warm and dry Chronic venous changes noted BLE Neurologic: PERRL, EOMI, accommodation nl, no face palsy, no dysarthria Psychiatric: A+Ox3, euthymic affect Results & Data Results & Data ([facility]) Vital Signs (Past 12 Hours) Vital Signs Temp Pulse Pulse Resp BP BP Pulse Ox 05/21/21 19:00 60 18 131/79 94 05/21/21 18:00 62 16 113/71 95 05/21/21 17:08 36.6 C 65 16 125/74 96 Laboratory Results Short CBC 05/21/21 Range/Units 17:40 WBC 6.86 (4.8-10.8) K/uL Hgb 14.0 (14.0-18.0) g/dL Hct 42.3 (42-52) % Plt Count 161 (130-400) K/uL [facility] 05/21/21 17:40 Sodium 141 Potassium 4.2 Chloride 111 H Carbon Dioxide 28 BUN 11 Creatinine 0.82 Glucose 122 H Calcium 8.5 Cardiac Enzymes 05/21/21 Range/Units 17:40 Troponin I < 0.015 (0-0.045) ng/ml Liver Function 05/21/21 Range/Units 17:40 Total Bilirubin 0.9 (0.2-1) mg/dl AST 17 (15-37) U/L ALT 35 (12-78) U/L Alkaline Phosphatase 97 (45-117) U/L Albumin 3.7 (3.4-5.0) gm/dl Diagnostic Findings Short CBC 05/21/21 Range/Units 17:40 WBC 6.86 (4.8-10.8) K/uL Hgb 14.0 (14.0-18.0) g/dL Hct 42.3 (42-52) % Plt Count 161 (130-400) K/uL [facility] 05/21/21 17:40 Sodium 141 Potassium 4.2 Chloride 111 H Carbon Dioxide 28 BUN 11 Creatinine 0.82 Glucose 122 H Calcium 8.5 Cardiac Enzymes 05/21/21 Range/Units 17:40 Troponin I < 0.015 (0-0.045) ng/ml Liver Function 05/21/21 Range/Units 17:40 Total Bilirubin 0.9 (0.2-1) mg/dl AST 17 (15-37) U/L ALT 35 (12-78) U/L Alkaline Phosphatase 97 (45-117) U/L Albumin 3.7 (3.4-5.0) gm/dl Supervising Physician Co-Signing Physician Notes IM ATTENDING : Patient seen and examined. History obtained from patient and records. Preceding documentation by MARILYN Powers reviewed. FINAL ASSESSMENT AND PLAN as follows : Chest pain, shortness of breath, fatigue symptoms intermittent symptoms at home since last year as per patient. Possibly musculoskeletal given reproducible component Mood disorder contributory ( Rule out ACS given nitro relief and history nonocclusive CAD Rule out atrial fibrillation as possible etiology of shortness of breath, fatigue symptoms given SSS status post PPM history Hypertension, stable Hyperlipidemia on statin Rx History TIA as per records DM2 diet controlled, well-controlled as of recent hemoglobin A1c of 6.4, December 2020 AZEB on CPAP History of gastric bypass Chronic back pain, at baseline, patient still unhappy with home narcotics being stopped by PCP sometime ago Past tobacco abuse OBS PCU Continue antiplatelet Rx, statin Rx for secondary CAD prevention Follow troponin Cardiology consult Re: Chest pain N.p.o. until patient seen by Cardiology in anticipation of procedure Pacemaker interrogation Basal insulin adjusted for n.p.o. status, ISS BG goal 1 10-1 40 DVT prophylaxis. Lovenox subcu Full code Text document was generated using [employer]rivent[employer] recognition software. It may contain grammatical or spelling errors. Kindly contact undersigned for clarification of any documentation item in question.
[2021-05-21 20:26] LABS: Partial Thromboplastin Time 27.4 Seconds (21.0-31.0)
[2021-05-21 20:28] LABS: D Dimer 210 ug/L FEU (0-500)
[2021-05-21 21:07] LABS: Lyme Ab IgG w/WB Rflx Negative (Negative); Lyme Ab IgM w/WB Rflx Negative (Negative)
[2021-05-21] MEDS ORDERED: CARBOHYDRATES FOR HYPOGLYCEMIA PO PRN (22:10)
[2021-05-21] MEDS ORDERED: LACTATED RINGER'S 1,000 ML IV SCH (22:10)
[2021-05-21] MEDS ORDERED: oxyCODONE/ACETAMINOPHEN 5mg/325mg TAB PO PRN (22:10)
[2021-05-21] MEDS ORDERED: GLUCAGON FOR INJ 1 MG VIAL SQ PRN (22:10)
[2021-05-21] MEDS ORDERED: lisinopril 20 MG TAB PO SCH (22:10)
[2021-05-21] MEDS ORDERED: LORazepam 0.5 MG/1 ML VIAL IV PRN (22:10)
[2021-05-21] MEDS ORDERED: GLUCOSE 10 TABS/TUBE PO PRN (22:10)
[2021-05-21] MEDS ORDERED: DEXTROSE 50% 50 ML SYRINGE IV PRN (22:10)
[2021-05-21] MEDS ORDERED: NITROGLYCERIN SL 0.4 MG/TAB TAB SL PRN (22:10)
[2021-05-21] MEDS ORDERED: ACETAMINOPHEN 325 MG TAB PO PRN (22:10)
[2021-05-21] MEDS ORDERED: MoRPHine SULFATE 4 MG/ML 1 ML CARP\\VIAL IV PRN (22:10)
[2021-05-21] MEDS ORDERED: PROMETHAZINE HCL 12.5 MG in SODIUM CHLORIDE 0.9% 50 ML IV PRN (22:10)
[2021-05-21] MEDS ORDERED: GLUCOSE 40% GEL 15 GM TUBE PO PRN (22:10)
[2021-05-21] MEDS ORDERED: FLUTICASONE/VILANTEROL 100/25MCG 14 PUFFS/INHALER INH SCH (23:00)
[2021-05-21] MEDS ORDERED: FERROUS SULFATE 325 MG TAB PO SCH (23:00)
[2021-05-21] MEDS: carvediloL 12.5 MG TAB PO SCH (23:11)
[2021-05-21] MEDS: INSULIN ASPART 100 UNITS/ML 3 ML PEN SC SCH (23:47)
[2021-05-22 05:52] LABS: Basophils # (auto) 0.01 K/uL (0-0.2); Basophils % (auto) 0.2 %; Eosinophils # (auto) 0.19 K/uL (0-0.5); Eosinophils % (auto) 2.9 %; Hematocrit (blood only) 39.4 % (42-52); Hemoglobin 13.1 g/dL (14.0-18.0); Immature Granulocytes # (auto) 0.01 K/uL (0.00-0.02); Immature Granulocytes % (auto) 0.2 %; Lymphocytes % (auto) 24.2 %; Mean Corpuscular Hemoglobin 31.3 pg (25-34); Mean Corpuscular Hgb Conc 33.2 g/dL (32-36); Mean Platelet Volume 9.8 fL (7.4-10.4); Monocytes # (auto) 0.72 K/uL (0.11-0.59); Monocytes % (auto) 10.9 %; Neutrophils # (auto) 4.07 K/uL (1.4-6.5); Neutrophils % (auto) 61.6 %; Platelet Count 157 K/uL (130-400); RDW Coefficient of Variation 13.5 % (11.5-14.5); RDW Standard Deviation 46.7 fL (36.4-46.3); Red Blood Count 4.19 M/uL (4.7-6.1)
[2021-05-22 06:00] LABS: Partial Thromboplastin Time 27.1 Seconds (21.0-31.0)
[2021-05-22 06:25] LABS: BUN Creatinine Ratio 18.3 (10-20); Calcium 8.1 mg/dl (8.5-10.1); Creatinine Clr Calc Pharmacy 158.4 ml/min; Est GFR (African American) 120.9 ml/min; Est GFR (Non-African American) 104.3 ml/min; Potassium 4.3 mmol/L (3.5-5.1)
[2021-05-22] MEDS ORDERED: LEVOTHYROXINE SODIUM 25 MCG TABLET PO SCH (06:30)
[2021-05-22] MEDS: INSULIN ASPART 100 UNITS/ML 3 ML PEN SC SCH ×2 (06:42→12:09)
[2021-05-22] MEDS: carvediloL 12.5 MG TAB PO SCH (08:14)
[2021-05-22] MEDS ORDERED: CLOPIDOGREL BISULFATE 75 MG TAB PO SCH (09:00)
[2021-05-22] MEDS ORDERED: NIFEdipine EXTENDED REL 30 MG TABCR PO SCH (09:00)
[2021-05-22] MEDS ORDERED: DULoxetine HCL 30 MG CAP PO SCH (09:00)
[2021-05-22] MEDS ORDERED: ENOXAPARIN INJ 40 MG/0.4 ML SYR SQ SCH (09:00)
[2021-05-22] MEDS ORDERED: TAMSULOSIN HCL 0.4 MG CAP PO SCH (09:00)
[2021-05-22] MEDS ORDERED: ROSUVASTATIN CALCIUM 20 MG TAB PO SCH (09:00)
[2021-05-22] MEDS ORDERED: ATROPINE SULFATE 0.1 MG/ML 10ML SYR IV ONE ×2 (09:22→10:02)
[2021-05-22] MEDS ORDERED: DOBUTamine HCL 12.5 MG/ML 20 ML VIAL IV ONE (09:22)
--- NOTE | 2021-05-22 09:48 | Cardiology Consultation ---
Date of Consultation May 22, 2021 Assessment & Plan (1) Chest pain: (2) SOB (shortness of breath): (3) SSS (sick sinus syndrome): (4) CAD (coronary artery disease): (5) History of TIA (transient ischemic attack): (6) Sleep apnea: (7) Volume depletion: (8) Orthostatic syncope: nonischemic stress echo device interrogated, no arrhythmias episode secondary to volume depletion with poor po intake other than mountain dew with increased perspiration during heat wave avoidance of volume depletion reviewed with patient ok to d/c to home from cardiac standpoint no med changes f/u as scheduled with cardiology History of Present Illness Reason for Consultation: chest pain/near syncope Requesting Physician: JULIO Attending Physician: Jazmin Parham MD History of Present Illness It was my pleasure to see Mr. Jenkins in cardiac consultation today May 22, 2021. He is a very pleasant yet medically complex 60-year-old gentleman who routinely follows with Hu Knox of our cardiology practice. He presented to [facility] on 05/21/2021 with complaints of a near syncopal spell. He states he was in his normal state of health and yesterday while at work he was walking around and after sitting down to take a break he began feeling very lightheaded and dizzy. He felt himself being close to passing out. Along the with this was his chronic chest discomfort which she describes as a pressure sensation. This is been a chronic issue and going on for several years now. Upon arrival to the emergency department he was found to be significantly volume depleted and states he felt much better once he started receiving IV fluids. Currently states he just feels tired but is not had any further lightheadedness or chest discomfort overnight. Past medical history as per most recent outpatient cardiology note: 1. Mild, nonobstructive coronary artery disease 2. Symptomatic bradycardia & sick sinus syndrome s/p 10/03/2009 dual chamber pacemaker implantation, generator exchange on 07/26/2020 3. Longstanding labile hypertension, hypertensive heart disease. 4. Hyperlipidemia 5. Type II diabetes mellitus with neuropathy 6. TIA x 4 for which he is prescribed ASA and Clopidogrel 7. Morbid obesity s/p gastric bypass with postgastric surgery syndrome 8. COPD with past tobacco abuse 9. Chart history of asthma 10. AZEB 11. RLS 12. GERD/esophagitis 13. Anemia. History of B12 deficiency and iron deficiency. 14. Vitamin D deficiency 15. Osteoarthritis 16. Chronic back pain 17. Anxiety and depression. 18. Noncompliance. Allergies Allergy/AdvReac Type Severity Reaction Status Date / Time armodafinil AdvReac Severe "ZONED OUT" Verified 05/21/21 18:39 baclofen AdvReac Intermediate "ZONED OUT" Verified 05/21/21 18:39 NSAIDS (Non-Steroidal AdvReac Mild PER MD- Verified 05/21/21 18:39 Anti-Inflamma D/T GASTRIC BYPASS SURGERY Home Medications Medication Instructions Recorded Confirmed Type amiloride 5 mg PO HS 01/26/19 05/21/21 History aspirin 81 mg PO HS 01/26/19 05/21/21 History carvedilol 12.5 mg PO BID 01/26/19 05/21/21 History lisinopril 20 mg PO HS 01/26/19 05/21/21 History nitroglycerin [Nitrostat] 1 tab SUBLINGUAL UD PRN 01/26/19 05/21/21 History oxycodone-acetaminophen [Percocet] 1 - 2 tab PO Q6H PRN #30 tab 02/17/19 05/21/21 Rx albuterol sulfate [Ventolin HFA] 2 puff INHALATION Q4H PRN 05/21/21 05/21/21 History cholecalciferol (vitamin D3) 125 mcg PO DAILY 05/21/21 05/21/21 History [Vitamin D3] clopidogrel 75 mg PO DAILY 05/21/21 05/21/21 History duloxetine [Cymbalta] 90 mg PO QAM 05/21/21 05/21/21 History ferrous sulfate [iron] 325 mg PO HS 05/21/21 05/21/21 History fluticasone propion-salmeterol 1 inh INHALATION HS 05/21/21 05/21/21 History [Advair Diskus] gabapentin 100 mg PO TID 05/21/21 05/21/21 History levothyroxine 25 mcg PO DAILY 05/21/21 05/21/21 History nifedipine 60 mg PO DAILY 05/21/21 05/21/21 History rosuvastatin 40 mg PO DAILY 05/21/21 05/21/21 History tamsulosin 0.4 mg PO DAILY 05/21/21 05/21/21 History Patient History Medical History Anxiety Asthma Barretts esophagus CAD (coronary artery disease) cath 2015 - mild, non obstructive Chronic back pain Depression Diabetes mellitus, type 2 DIET CONTROLLED Hyperlipidemia Hypertension Osteoarthritis Pacemaker 2008. HX OF SYMPTOMATIC BRADYCARDIA, HR<30. LAST REMOTE CHECK ON 01/09. Sleep apnea CPAP SSS (sick sinus syndrome) Transient ischemic attack (TIA) TOTAL: 3, LAST ONE PRIOR TO 2008. PT STATES HE HAS VERY MILD WEAKNESS ON LEFT SIDE/NEUROPATHY. OCCASIONAL DIFFICULTY FINDING RIGHT WORDS. Surgical History History of arthroscopy LEFT KNEE History of carpal tunnel release B/L History of colonoscopy 4+ History of elbow surgery LEFT X 2 - ULNAR NERVE RELEASE History of esophagogastroduodenoscopy (EGD) 4+ History of gastric bypass SEP 2007 History of herniorrhaphy UMBILICAL History of testicular surgery History of tonsillectomy Pacemaker IMPLANT SEP 2009 Social History Smoking Status: Never smoker Tobacco Type: Cigarettes Cigarettes Per Day: QUIT IN 2004. 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 No acute distress. HEENT: Normocephalic, atraumatic. Pupils equal, round and reactive to light and accommodation. Extraocular muscles are intact. Anicteric sclera. Moist mucous membranes. Neck: No JVD. No bruit. Cardiovascular: Regular. Positive S-4. Normal S-1 and S-2. No S-3. No murmurs or rubs. Pulmonary: Clear to auscultation B/L. No rales, rhonchi or wheezing Abdomen: Bowel sounds x 4, soft. No rebound, guarding or tenderness. No organomegaly. Extremities: No clubbing, cyanosis or edema. +2 pedal pulses bilaterally. Skin: Warm and dry. Results & Data ([facility]) Vital Signs (Past 12 Hours) Vital Signs Temp Pulse Pulse Resp BP BP Pulse Ox 05/22/21 07:24 36.5 C 63 18 130/79 96 05/22/21 07:00 62 05/22/21 03:51 36.4 C L 63 17 128/84 96 05/21/21 23:11 36.7 C 60 18 106/61 96 05/21/21 22:10 18
[2021-05-22] MEDS: METOPROLOL TARTRATE 1 MG/ML VIAL IV ONE ×2 (10:20→10:42)
[2021-05-22] MEDS: ESMOLOL HCL INJ 10 MG/ML 10ML VIAL IV ONE ×2 (10:42→13:26)
--- NOTE | 2021-05-22 13:43 | Hospitalist Progress Note ---
Date of Service May 22, 2021 Assessment & Plan (1) Chest pain: Present on admission with chest pain Troponin x 3 negative, lyme titer and covid 19 negative Cardiology on board Stress echo negative for ischemia as per cardiology Continue aspirin and carvedilol and statin Ok from cardiology standpoint to discharge Follow up with cardiology outpatient (2) CAD (coronary artery disease): Denies any chest pain currently Continue aspirin, Plavix and carvedilol and statin (3) SSS (sick sinus syndrome): (4) Pacemaker: Device interrogated, no arrhythmias as per cardiology Stable (5) Diabetes mellitus, type 2: Last hemoglobin A1c of 6.4 on December 2020 Not on any DM med Check Hba1c outpatient (6) History of TIA (transient ischemic attack): Continue Aspirin, plavix and statin Stable HTN BP stable Continue Lisinopril, Nifedipine and carvedilol DVT px on Lovenox subq CODE STATUS FULL CODE Disposition Discharge home today Admission and Anticipated Discharge Date Admission Date: May 21, 2021 Subjective Pt was seen and examined for follow up of chst pain Lying in bed with no distress Pt said that he feels fine Pt said that he did a lot activities in the yard yesterday He said that he is not having any pain Denies any chest pain, palpitation, dizziness and SOB Review of Systems Review of Systems: All systems reviewed & are unremarkable except as noted in Subjective Physical Exam Physical Exam: General- No acute distress Head- atraumatic Eyes- PERRL, EOMI, ENT- oropharynx clear Neck- supple, no JVD Lungs- clear to auscultation Heart- regular rhythm; no murmur Abdomen- normal bowel sounds, soft, nontender Extremities- no calf tenderness Neuro- alert, oriented x 3; PERRL, EOMI; no facial palsy; no dysarthria Skin- warm & dry Results & Data Results & Data ([facility]) Vital Signs (Past 12 Hours) Vital Signs Temp Pulse Pulse Resp BP BP Pulse Ox 05/22/21 11:47 36.6 C 60 17 109/68 96 05/22/21 07:24 36.5 C 63 18 130/79 96 05/22/21 07:00 62 05/22/21 03:51 36.4 C L 63 17 128/84 96
[2021-05-22] MEDS ORDERED: Nursing to Pharmacy Communication SCH (14:15)
--- NOTE | 2021-05-22 14:33 | Electrocardiogram Report ---
Test Reason : Blood Pressure : / mmHG Vent. Rate : 061 BPM Atrial Rate : 061 BPM P-R Int : 210 ms QRS Dur : 086 ms QT Int : 424 ms P-R-T Axes : 000 028 044 degrees QTc Int : 426 ms Atrial-paced rhythm with prolonged AV conduction Cannot rule out Anterior infarct , age undetermined Abnormal ECG When compared with ECG of 21-FEB-2017 13:50, No significant change was found Confirmed by Oscar Desai ([id number]) on 05/22/2021 2:33:32 PM Referred By: REFERRED SELF Confirmed By:Oscar Desai
--- NOTE | 2021-05-22 14:49 | Electrocardiogram Report ---
Test Reason : Blood Pressure : / mmHG Vent. Rate : 062 BPM Atrial Rate : 062 BPM P-R Int : 000 ms QRS Dur : 088 ms QT Int : 432 ms P-R-T Axes : 000 022 032 degrees QTc Int : 438 ms Atrial-paced rhythm Abnormal ECG When compared with ECG of 21-MAY-2021 17:25, (unconfirmed) No significant change was found Confirmed by Oscar Desai ([id number]) on 05/22/2021 2:48:38 PM Referred By: REFERRED SELF Confirmed By:Oscar Desai
[2021-05-22] MEDS ORDERED: INSULIN ASPART 100 UNITS/ML 3 ML PEN SC SCH (16:30)
[2021-05-22] MEDS ORDERED: ASPIRIN 81 MG ECTAB PO SCH (21:00)
--- NOTE | 2021-05-27 01:04 | Discharge Summary ---
Date of Service May 22, 2021 Admission HPI Per Admitting Provider 60-year-old male PMH diet-controlled DM type II, asthma, mild nonobstructive CAD per cardiac cath 2015, SSS s/p pacemaker, HTN, Rosado's esophagus, history of gastric bypass, history of TIA, hypothyroidism, and other problems listed below who presents the ED for evaluation of chest pain. Patient reports having episodes of chest pain over the past several years. Noted cardiac cath 2015 showed mild, nonobstructive disease and nuclear stress test 07/2020 was nonischemic. Patient notes that over the past 2 weeks, he has had increasing chest discomfort. Patient describes the pain as a pressure with radiation into his left shoulder and left arm. He reports associated shortness of breath. He reports the symptoms come on with minimal exertion. He has been taking nitroglycerin at least every other day. Today, patient had the most severe of his chest discomfort episodes and therefore presented to the ED for further evaluation. Patient denies associated diaphoresis, lightheadedness, dizziness, syncopal event. No other recent illnesses, fevers, chills. Denies abdominal pain, nausea, vomiting, diarrhea. No urinary symptoms. In the ED, initial troponin is negative and EKG demonstrates a paced rhythm and does not show any acute ST changes. Patient was given a full dose aspirin and topical nitroglycerin. He reports chest pressure is currently very mild and much improved from earlier today. HR and BP are stable. Admission Exam Per Admitting Provider Constitutional: WD/WN, vitals as above + obese Eyes: PERRL, conjunctivae normal, anicteric sclerae ENMT: external ear and nose normal, oropharynx normal Respiratory: normal respiratory effort, lungs clear to auscultation Cardiovascular: regular rate and regular rhythm Vessels: normal peripheral pulses Extremities: no edema Gastrointestinal:normal bowel sounds, soft, nontender, no hepatosplenomegaly Musculoskeletal: no cyanosis or clubbing, extremities motor strength 5/5 Skin: no rashes, warm and dry Chronic venous changes noted BLE Neurologic: PERRL, EOMI, accommodation nl, no face palsy, no dysarthria Psychiatric: A+Ox3, euthymic affect Principal Diagnosis Chest pain: CAD (coronary artery disease): SSS (sick sinus syndrome): Pacemaker: Diabetes mellitus, type 2: History of TIA (transient ischemic attack): HTN Discharge Exam General- No acute distress Head- atraumatic Eyes- PERRL, EOMI, ENT- oropharynx clear Neck- supple, no JVD Lungs- clear to auscultation Heart- regular rhythm; no murmur Abdomen- normal bowel sounds, soft, nontender Extremities- no calf tenderness Neuro- alert, oriented x 3; PERRL, EOMI; no facial palsy; no dysarthria Skin- warm & dry Discharge Data Allergies Allergy/AdvReac Type Severity Reaction Status Date / Time armodafinil AdvReac Severe "ZONED OUT" Verified 05/21/21 18:39 baclofen AdvReac Intermediate "ZONED OUT" Verified 05/21/21 18:39 NSAIDS (Non-Steroidal AdvReac Mild PER MD- Verified 05/21/21 18:39 Anti-Inflamma D/T GASTRIC BYPASS SURGERY Consultations 05/21/21 18:39 ED Decision to Admit Stat 05/21/21 22:10 Consult Cardiology Routine Ordered Studies SINGLE VIEW CHEST CLINICAL HISTORY: Generalized weakness. FINDINGS: An AP, portable, upright chest radiograph is compared to study dated 02/02/2019. A 2-lead cardiac pacemaker is unchanged in position. The heart is enlarged. The pulmonary vasculature is noncongested. There is mild bibasilar atelectasis. The lungs and pleural spaces are otherwise clear. No pneumothorax is seen. The skeletal structures appear osteopenic. The bony thorax is grossly intact. IMPRESSION: 1. Cardiomegaly and cardiac pacemaker with no radiographic evidence of congestive failure. 2. No airspace consolidation or large pleural effusion is identified. ACT 112: Negative or not required by law. Electronically signed by: Spencer Collins M.D. 05/21/2021 6:54 PM Dictated: 05/21/211852Transcribed: 05/21/211852 Hospital Course (1) Chest pain: Present on admission with chest pain Troponin x 3 negative, lyme titer and covid 19 negative Cardiology on board Stress echo negative for ischemia as per cardiology Continue aspirin and carvedilol and statin Ok from cardiology standpoint to discharge Follow up with cardiology outpatient (2) CAD (coronary artery disease): Denies any chest pain currently Continue aspirin, Plavix and carvedilol and statin (3) SSS (sick sinus syndrome): (4) Pacemaker: Device interrogated, no arrhythmias as per cardiology Stable (5) Diabetes mellitus, type 2: Last hemoglobin A1c of 6.4 on December 2020 Not on any DM med Check Hba1c outpatient (6) History of TIA (transient ischemic attack): Continue Aspirin, plavix and statin Stable HTN BP stable Continue Lisinopril, Nifedipine and carvedilol DVT px on Lovenox subq CODE STATUS FULL CODE Disposition Discharge home today Total Time Total Time Spent Total Time Spent (In Minutes): 35 minutes Total Time Includes: Examination of the Patient, Discharge Planning, Medication Reconciliation, Communication With Other Providers and Other Discharge Plan Discharge Items Patient Disposition: Home - Self-Care Reason For Visit: CP, FATIGUE Discharge Diagnosis: Chest pain Condition on Discharge: Fair Activity: Resume your previous activity Non-emergency contact: Primary Care Provider Call non-emergency contact if: you have any medication questions Follow-up/Referrals: Dae Joseph MD [Primary Care Provider] - (Date & Time 05/29/2021 11:40 AM Provider Margaret Gipson, [facility] ) Diet: Carb Consistent or DM2 Addtl Attending Provider Instructions: Follow up with your primary care provider Dr. Gipson (Dr. Joseph's colleague) on 05/29/2021 @ 11:40 AM at [facility] Follow up with your cardiology (Please call for the appointment) Seek medical attention if chest pain reoccur and persists Fall precaution Pending Studies at Discharge: No Stand-Alone Forms: My [employer], Smoking Cessation Medications and DC Order Prescriptions: Continued carvedilol 25 mg Tablet 12.5 mg PO BID RF: 0 aspirin 81 mg Tablet,Delayed Release (Dr/Ec) 81 mg PO HS RF: 0 amiloride 5 mg Tablet 5 mg PO HS RF: 0 nitroglycerin [Nitrostat] 0.4 mg Tablet, Sublingual 1 tab Sublingual UD PRN (Reason: CHESTPAIN) RF: 0 lisinopril 40 mg Tablet 20 mg PO HS RF: 0 oxycodone-acetaminophen [Percocet] 5-325 mg tablet 1 - 2 tab PO Q6H PRN (Reason: pain) Qty: 30 RF: 0 fluticasone propion-salmeterol [Advair Diskus] 100-50 mcg/dose blister with device 1 inh INHALATION HS RF: 0 duloxetine [Cymbalta] 30 mg Capsule,Delayed Release(Dr/Ec) 90 mg PO QAM RF: 0 cholecalciferol (vitamin D3) [Vitamin D3] 125 mcg (5,000 unit) Tablet 125 mcg PO DAILY RF: 0 ferrous sulfate [iron] 325 mg (65 mg iron) Tablet 325 mg PO HS RF: 0 clopidogrel 75 mg tablet 75 mg PO DAILY RF: 0 levothyroxine 25 mcg tablet 25 mcg PO DAILY RF: 0 tamsulosin 0.4 mg capsule 0.4 mg PO DAILY RF: 0 gabapentin 100 mg capsule 100 mg PO TID RF: 0 albuterol sulfate [Ventolin HFA] 90 mcg/actuation HFA aerosol inhaler 2 puff INHALATION Q4H PRN (Reason: Shortness Of Breath) RF: 0 nifedipine 60 mg tablet extended release 60 mg PO DAILY RF: 0 rosuvastatin 40 mg tablet 40 mg PO DAILY RF: 0 Discharge Orders: Discharge Order (Routine); Ordered 05/22/21 Ordered By: Jazmin Arenas/Other Patient Handouts: ED Angina, Stable Admission Data Admit Date/Time: 05/21/21 19:50 Attending Provider: Jazmin Parham Admit Provider: Dae Levine Primary Care Provider: Dae Joseph Other Providers: Dae Levine ; Vishal Crystal ; Ken Ferrer ; Orville Maldondao ; Trever Evangelista ; Matt Bustamante ; Hu Knox ; Lisseth Leon ; Lali Virgen ; Lina Corley ; Nolberto Wallace Other Interventions: Discharge Summary Assessment (RN) Last Done: 05/22/21 14:24
== END 2021-05-22 14:57 | disposition home or self-care (01) ==
LOC: 2S 17:08 → ED 17:08 → 2S 20:52